=== PATIENT | male | born 1960 | race Caucasian/White ===

== ENCOUNTER 2016-04-03 16:04 | Emergency (ER) | payer BC, OTHER ==
[~2016-04-03] VITALS: Ht 182.9 cm; Wt 89.2 kg
[~2016-04-03 16:04] MED LIST: ADVIN50050 INH; ALBUAER2 INH; EZET10TA63 PO; FEXO5TAB2 PO; FLXHP; GABA-112 PO; GLUC10007 PO; MELATAB2 PO; MULT-506 PO; POTA1TAB PO; SNG10 PO
[2016-04-03 16:05] VITALS: BP 160/93; PULSE 83; TEMP 37; O2SAT 96; Ht 182.9 cm; Wt 89.2 kg
--- NOTE | 2016-04-03 16:39 | DIAGNOSTIC IMAGING REPORT ---
RIGHT ELBOW 3 VIEWS HISTORY: R elbow pain Right COMPARISON: None. FINDINGS: There is no fracture or dislocation. Soft tissues are unremarkable. No joint effusion. Small calcification adjacent to the medial epicondyle consistent with calcific tendinitis. IMPRESSION: No fracture or dislocation within the right elbow Electronically signed by: Choco Watson M.D. 04/03/2016 4:38 PM Dictated Date/Time: 04/03/2016 4:37 PM
--- NOTE | 2016-04-03 16:41 | DIAGNOSTIC IMAGING REPORT ---
RIGHT SHOULDER 3 VIEWS HISTORY: R shoulder injury Right COMPARISON: None. FINDINGS: There is no fracture or dislocation. Soft tissues are unremarkable. No radiopaque foreign bodies. The right clavicle is intact. There is mild AC joint arthropathy. IMPRESSION: No fracture or dislocation within the right shoulder. Electronically signed by: Choco Watson M.D. 04/03/2016 4:39 PM Dictated Date/Time: 04/03/2016 4:38 PM
[2016-04-03] MEDS ORDERED: SNG10 PO (16:48)
[2016-04-03] MEDS ORDERED: ALBUAER INH (16:48)
[2016-04-03] MEDS ORDERED: ZTA10 PO (16:48)
[2016-04-03] MEDS ORDERED: GABA1CAP4 PO (16:48)
[2016-04-03] MEDS ORDERED: TADA20TA PO (16:48)
[2016-04-03] MEDS ORDERED: CELE1CAP28 PO (16:48)
[2016-04-03] MEDS ORDERED: EPP3/2 IM (16:48)
[2016-04-03] MEDS ORDERED: ADVIN50/60 INH (16:48)
[2016-04-03] MEDS ORDERED: ALL180 PO (16:48)
[2016-04-03] MEDS ORDERED: GLUC1000 PO (16:50)
[2016-04-03] MEDS ORDERED: MELA1TAB49 PO (16:50)
--- NOTE | 2016-04-03 17:00 | EMERGENCY ROOM VISIT NOTE ---
History First contact with patient: 16:09 Chief Complaint: SHOULDER PAIN Stated Complaint: FELL OFF OF TRUCK,RT SHOULDER/ELBOW/BACK PAIN,WC History of Present Illness The patient is a 56 year old male who presents to the Emergency Room with complaints of injuries after falling out of a tractor trailer at 1 PM this afternoon. The patient reports that he was attempting to crawl out of the trailer with a rope that was attached to the inside of the box. As he was stepping off of the back step, the rope snapped, and the patient fell directly onto the right lateral shoulder region. He also reports hitting his elbow on the ground as well. He denies any head injury. He does report mild neck discomfort. He also has a history of chronic sciatica, but does not currently complain of any significant lower back pain. The patient denies any shortness of breath or rib pain. He rates his discomfort a 4 out of 10. The patient is [id number]. Review of Systems 10 system review was performed and was negative except for pertinent positives and negatives as indicated in history of present illness Past Medical/Surgical History Medical Problems: (1) Asthma (2) Hypercholesterolemia (3) Sciatica (4) Spinal stenosis Surgical Problems: (1) No history of previous surgery Social History Smoking Status: Never Smoker Alcohol Use: occasionally Marital Status: Housing Status: lives with family Occupation Status: employed Current/Historical Medications Scheduled Celecoxib (Celecoxib), 100 MG PO BID Ezetimibe (Zetia), 10 MG PO QAM Fexofenadine HCl (Fexofenadine HCl), 180 MG PO QAM Fluticasone Prop/Salmeterol (Advair Diskus 500/50 60 Dose), 1 PUFF INH BID Gabapentin (Gabapentin), 300 MG PO BID Glucosamine Sulfate (Glucosamine Sulfate), 2,000 MG PO QAM Melatonin (Melatonin), 3 MG PO HS Montelukast Sod (Montelukast Sodium), 10 MG PO HS Multivitamin (Multivitamin), 1 TAB PO QAM Potassium Gluconate (Potassium Gluconate), 1 TAB PO QAM Tadalafil (Cialis), 20 MG PO UD Scheduled PRN Albuterol Sulfate (Proventil Hfa), 2 PUFFS INH QID PRN for Shortness of Breath Epinephrine (Epipen 2-Vincent), 0.3 MG IM UD PRN for ALLERGIC REACTION Allergies Coded Allergies: NO KNOWN DRUG ALLERGIES (Verified Allergy, Unknown, ., 11/18/15) Uncoded Allergies: WASPS (Allergy, Unknown, ANAPHYLAXIS, 11/11/15) Physical Exam Vital Signs Date Time Temp Pulse Resp B/P Pulse Ox O2 Delivery O2 Flow Rate FiO2 04/03/16 16:05 37.0 83 18 160/93 96 Room Air Physical Exam CONSTITUTIONAL: Healthy and well nourished. Alert and oriented X 3 with positive affect. Patient is not appear in any acute distress. HEENT: Normocephalic, atraumatic. Pupils equal, round and reactive. NECK: Full active range of motion without discomfort. RESPIRATORY: Clear to auscultation bilaterally with no wheezing, crackles, rhonchi or stridor. CARDIOVASCULAR: Regular rate and rhythm with no murmurs, rubs or gallops. GASTROINTESTINAL: Bowel sounds present in all quadrants. Soft and nontender to palpation. MUSCULOSKELETAL: Examination shows a small abrasion to the lateral aspect of the right elbow. Otherwise he has full range of motion of the elbow without discomfort. No obvious joint effusion. The patient is also performing full active range of motion of the shoulder without any significant discomfort. Negative drop arm test. Negative apprehension test. No focal tenderness over the distal clavicle or acromioclavicular joint. Distal pulses are intact. INTEGUMENTARY: No rash or other significant dermatologic conditions noted. NEUROLOGIC: Right deltoid sensation is intact. Medical Decision & Procedures ER Provider Diagnostic Interpretation: My interpretation of right shoulder and elbow x-rays does not show any acute fractures or dislocations. Radiologist reports were also reviewed with concurrence. ED Course Patient history and physical exam were performed. Nurse's notes were reviewed. The patient refused any analgesics while in the emergency department. Right shoulder and elbow x-rays were normal. The patient was encouraged to intermittently apply ice to areas of discomfort. Continue with Celebrex twice daily as previously prescribed by his PCP. He may also add Tylenol 1000 mg every 6 hours for additional pain relief. He was encouraged to avoid heavy labor with the right upper extremity, however should perform gentle range of motion exercises of the shoulder to prevent stiffness. He was encouraged to follow-up with his Worker's Compensation approved orthopedic surgeon if the shoulder is not improving or worsening within the next week. The patient was happy with plan of care, voiced understanding of all discharge instructions, and rated his pain a 3 out of 10 at the time of discharge. Medical Decision Impression Primary Impression: Contusion of right elbow Additional Impressions: Fall from stationary vehicle Work related injury Contusion of right shoulder Departure Information Dispostion Home / Self-Care Forms HOME CARE DOCUMENTATION FORM, IMPORTANT VISIT INFORMATION Patient Instructions My [facility] [employer] Additional Instructions Intermittently apply ice to the shoulder. Perform range of motion exercises of the shoulder and elbow to prevent stiffness. Continue with your home Celebrex twice daily. Tylenol 1000 mg every 6 hours if needed for additional pain relief. Follow-up with your Worker's Compensation approved orthopedic surgeon as needed for any persistent or worsening shoulder pain. Problem Qualifiers Primary Impression: Contusion of right elbow Encounter type: initial encounter Qualified Codes: S50.01XA - Contusion of right elbow, initial encounter Additional Impressions: Fall from stationary vehicle Encounter type: initial encounter Qualified Codes: W17.89XA - Other fall from one level to another, initial encounter Contusion of right shoulder Encounter type: initial encounter Qualified Codes: S40.011A - Contusion of right shoulder, initial encounter
[2016-10-31] MEDS ORDERED: CEPH500C PO (08:32)
[2016-10-31] MEDS ORDERED: OXYC-57 PO (08:32)
== END 2016-04-03 17:02 | disposition home or self-care (01) ==
LOC: C.EDB 16:05 → C.EDD 17:02
DX: S50.01XA Contusion of right elbow, initial encounter (principal); S40.011A Contusion of right shoulder, initial encounter; W17.89XA Other fall from one level to another, initial encounter; Y92.89 Other specified places as the place of occurrence of the external cause; Y99.0 Civilian activity done for income or pay; E78.00 Pure hypercholesterolemia, unspecified; J45.909 Unspecified asthma, uncomplicated; Z79.899 Other long term (current) drug therapy; Z91.030 Bee allergy status

== ENCOUNTER → 2016-08-01 | Day surgery (SDC) | payer OTHER, BC ==
[2016-07-24 07:53] VITALS: Ht 182.9 cm; Wt 81.8 kg
[~2016-08-01] VITALS: Ht 182.9 cm; Wt 81.8 kg
[~2016-08-01] MED LIST changes: +ADVIN50/60 INH; -ADVIN50050 INH; +ALBUAER INH; -ALBUAER2 INH; +ALL180 PO; +CELE1CAP28 PO; +CEPH500C PO; +EPP3/2 IM; -EZET10TA63 PO; -FEXO5TAB2 PO; -FLXHP; -GABA-112 PO; +GABA1CAP4 PO; +GLUC1000 PO; -GLUC10007 PO; +IOPAMIDOL INJ 61% 15 ML VIAL ONE; +LIDOCAINE HCL 1% MPF 5 ML VIAL ONE; +MELA1TAB49 PO; -MELATAB2 PO; +OXYC-57 PO; +SODIUM CHLORIDE 0.9% INJ 10 ML VIAL ONE; +TADA20TA PO; +ZTA10 PO
--- NOTE | 2016-08-01 13:22 | History & Physical Bridge - [place] ---
H&P Re-Evaluation Bridge Note: I have examined the patient, reviewed the History & Physical and in the interval since the performance of the History & Physical I have noted the following changes of clinical significance: No changes noted
--- NOTE | 2016-08-01 13:55 | Discharge Instructions ---
Discharge Instructions Date of Service August 01, 2016. Visit Reason for Visit: Lumbar Radiculopathy Discharge Discharge Diagnosis / Problem: right leg pain Discharge Goals Goal(s): Decrease discomfort, Improve function Activity Recommendations Activity Limitations: resume your previous activity Anesthesia . Post Anesthesia Instructions: If you have had General Anesthesia or IV Sedation: * Do not drive today. * Resume driving when surgeon permits. * Do not make important decisions or sign legal documents today. * Call surgeon for: 1. Temperature elevations greater than 101 degrees F. 2. Uncontrollable pain. 3. Excessive bleeding. 4. Persistent nausea and vomiting. 5. Medication intolerance (nausea, vomiting or rash). * For nausea and vomiting use only clear liquids such as: tea, soda, bouillon until nausea subsides, then gradually increase diet as tolerated. * If you have any concerns or questions, call your surgeon's office. If physician is unavailable and it is an emergency, call 911 or go to the nearest emergency room. . Diet Recommendations Recommended Home Diet: resume previous diet Procedures Procedures Performed: Lumbar epidural steroid injection Pending Studies Studies pending at discharge: no Medical Emergencies . Who to Call and When: Medical Emergencies: If at any time you feel your situation is an emergency, please call 911 immediately. . Non-Emergent Contact Non-Emergency issues call your: Specialist . . "Provider Documentation" section prepared by Alexandru Leos. .
[2016-08-01 13:57] VITALS: BP 157/88; PULSE 79; TEMP 36.8; O2SAT 94
--- NOTE | 2016-08-01 14:06 | OPERATIVE REPORT ---
DATE OF OPERATION: 08/01/2016 PREOPERATIVE DIAGNOSIS: L4-L5 extrusion with a right L5 radiculopathy. POSTOPERATIVE DIAGNOSIS: Same. PROCEDURE: Right paramedian L5-S1 intralaminar epidural steroid injection under fluoroscopic guidance. INDICATIONS: The patient is a 56-year-old white male who received an epidural injection in March with good results of right lower extremity radiculopathy pain. He reports recently the pain has been returning and is functionally limiting and problematic to him. He presents today for an epidural injection to provide him with relief. PHYSICAL EXAMINATION: Pleasant male seated comfortably, in no apparent distress. He has paraspinal muscles that were palpated and noted to be nontender. He has negative seated straight leg raises and intact sensation distally. CONSENT: Verbal and written consent was obtained from the patient. Risks and benefits were reviewed. Risks include but are not limited to epidural abscess, epidural hematoma, allergic reaction, dural puncture. The patient wishes to proceed. PROCEDURE: The patient was taken back to the special procedures room of the [facility] where he was maintained in a prone position. Backside was cleansed with Betadine x3 and a dry sterile dressing was applied. Fluoroscope was used to identify the L5-S1 intralaminar space and overlying skin on the right side was anesthetized with 4 mL of lidocaine 1% with a 25 gauge 1.5-inch needle. A 22-gauge 3-1/2 inch Tuohy needle was then directed down towards the intralaminar space. It was advanced under lateral fluoroscopic guidance and loss of resistance was noted at a depth of 6 cm. He then underwent injection of Isovue 300 contrast which demonstrated epidural uptake pattern 1 mL in both the AP and lateral views. He then underwent injection after negative aspiration of 40 mg of Depo-Medrol and 4 mL of preservative free sodium chloride. Injection was well tolerated and reproduced a transient radicular sensation down the leg. DISPOSITION: 1. The patient is taken out into the discharge recovery area where he will be discharged home once discharge criteria have been met. 2. Follow up in the [facility] Medicine office in 2-4 weeks. I attest to the content of the Intraoperative Record and any orders documented therein. Any exceptio ns are noted below.
== END | disposition home or self-care (01) ==
LOC: X.SURG 12:31
PROVIDERS: ATTEND Physical Medicine & Rehabilitation
DX: M51.26 Other intervertebral disc displacement, lumbar region (principal)

== ENCOUNTER → 2016-10-02 | Outpatient (CLI) | payer OTHER, BC ==
[~2016-10-02] MED LIST changes: -IOPAMIDOL INJ 61% 15 ML VIAL ONE; -LIDOCAINE HCL 1% MPF 5 ML VIAL ONE; -SODIUM CHLORIDE 0.9% INJ 10 ML VIAL ONE
[2016-10-02 17:32] LABS: BASO % 0.7 %; BASO ABS # 0.06 K/uL (0-0.2); COMPLETE YES; EOS % 1.7 %; HEMATOCRIT 48.7 % (42-52); IG% 0.5 %; LYMPH ABS # 1.61 K/uL (1.2-3.4); MEAN CELL VOLUME 96.6 fL (80-100); MEAN CORPUSCULAR HEMOGLOBIN 32.5 pg (25-34); MEAN CORPUSCULAR HGB CONC 33.7 g/dl (32-36); MONO % 11.4 %; NEUT % 65.7 %; PLATELET COUNT 274 K/uL (130-400); RED BLOOD COUNT 5.04 M/uL (4.7-6.1); WHITE BLOOD COUNT 8.04 K/uL (4.8-10.8)
[2016-10-02 17:58] LABS: BLOOD UREA NITROGEN 24 mg/dl (7-18); BUN/CREATININE RATIO 19.7 (10-20); CALCIUM 9.6 mg/dl (8.5-10.1); CARBON DIOXIDE 27 mmol/L (21-32); CHLORIDE 107 mmol/L (98-107); GLUCOSE 110 mg/dl (70-99); POTASSIUM 4.1 mmol/L (3.5-5.1); SODIUM 139 mmol/L (136-145)
== END | disposition home or self-care (01) ==
LOC: C.LAB1850 16:56
PROVIDERS: ATTEND Physician Assistant
DX: M12.811 Other specific arthropathies, not elsewhere classified, right shoulder (principal)

== ENCOUNTER → 2016-10-02 | Outpatient (CLI) | payer OTHER, BC | END | disposition home or self-care (01) | LOC: C.CPL 17:27 | PROVIDERS: ATTEND Physician Assistant | DX: M12.811 Other specific arthropathies, not elsewhere classified, right shoulder (principal) ==

== ENCOUNTER → 2016-10-31 | Day surgery (SDC) | payer OTHER, BC ==
[~2016-10-31] MED LIST changes: +ATROPINE SULFATE 0.1 MG/ML 5ML SYR IV PRN; +CEFAZOLIN 2000 MG/60 ML D5W IV SCH; +DEXAMETHASONE SOD INJ 4 MG/ML VIAL ONE; +EpHEDrine SULFATE INJ 50 MG/ML AMP IV PRN; +FENTANYL CITRATE INJ 50 MCG/1 ML 2 ML VIAL IV PRN; +FENTANYL CITRATE INJ 50 MCG/1 ML 2 ML VIAL ONE; +LACTATED RINGER'S 1000ML 1,000 ML IV SCH; +LIDOCAINE HCL 2% 2 ML VIAL (20MG/ML) ONE; +MIDAZOLAM HCL 1 MG/ML 2ML VIAL ONE; +ONDANSETRON INJ 2 MG/ML 2 ML VIAL IV PRN; +ONDANSETRON INJ 2 MG/ML 2 ML VIAL ONE; +OXYCODONE/ACETAMINOPHEN 5-325 TAB PO PRN; +PROPOFOL IV EMULSION 10 MG/ML 20 ML VIAL IV ONE; +ROPIVACAINE 0.5% 5 MG/ML 30 ML VIAL ONE; +SODIUM CHLORIDE 0.9% 1000ML 1,000 ML IV SCH
--- NOTE | 2016-10-31 08:47 | History & Physical Bridge Note ---
H&P Re-Evaluation Bridge Note: I have examined the patient, reviewed the History & Physical and in the interval since the performance of the History & Physical I have noted the following changes of clinical significance:consent obtained .No changes noted
--- NOTE | 2016-10-31 08:48 | Discharge Instructions ---
Discharge Instructions Date of Service Oct 31, 2016. Visit Reason for Visit: Right Shoulder Rotator Cuff Tear Discharge Discharge Diagnosis / Problem: same Discharge Goals Goal(s): Decrease discomfort, Improve function Medications Stopped Medications Name(s): CELEBREX last dose 10/26/16 Restart Stopped Medication(s): resume all scripts as directed Activity Recommendations Activity Limitations: as noted below Lifting Limitations: until after follow-up appointment Exercise/Sports Limitations: until after follow-up appointment May Resume Sexual Activity: when tolerated Shower/Bathe: keep incision dry Driving or Machine Use: resume 3 days after discharge Anesthesia . Post Anesthesia Instructions: If you have had General Anesthesia or IV Sedation: * Do not drive today. * Resume driving when surgeon permits. * Do not make important decisions or sign legal documents today. * Call surgeon for: 1. Temperature elevations greater than 101 degrees F. 2. Uncontrollable pain. 3. Excessive bleeding. 4. Persistent nausea and vomiting. 5. Medication intolerance (nausea, vomiting or rash). * For nausea and vomiting use only clear liquids such as: tea, soda, bouillon until nausea subsides, then gradually increase diet as tolerated. * If you have any concerns or questions, call your surgeon's office. If physician is unavailable and it is an emergency, call 911 or go to the nearest emergency room. . Instructions / Follow-Up Instructions / Follow-Up The following are instructions to follow after "Shoulder Surgery" including, Acromioplasty, Rotator Cuff Repair and Instability Surgery ACTIVITY RECOMMENDATIONS: * Minimize activity after surgery. * No excessive walking, jogging, sports or laboring. * Return to activity is individualized depending on the patient and type of surgery. * Driving is not permitted until at least your first post operative visit. Please ask your doctor when it is safe to resume driving. * Expect increased discomfort with increased activity. Continue to ice the shoulder as needed. SCHOOL/WORK RECOMMENDATIONS: * You may return to sedentary work or school when you are feeling more comfortable. This is usually 3-7 days after surgery. MEDICATIONS: * You will have a prescription for pain medication and an anti-inflammatory medication after surgery. * Use the pain medication for severe pain and the anti-inflammatory for less severe pain. Once the pain medication has run out, try to use the anti-inflammatory medication. If this is not effective, contact the office for assistance. * The pain medication may cause nausea, constipation and drowsiness. You should see how they affect you before driving or similar activity. * The anti-inflammatory medication may cause stomach upset and bleeding. If this occurs let your doctor know immediately . * Take a stool softener like Colace or a laxative like Senokot to prevent constipation. DIET: * Resume previous diet. SPECIAL CARE: ICE: You have the option of an ice cooler, gel packs or ice bags. * If you have an ice cooler, refer to the instructions for that device. The ice cooler may be used continuously. * If you do not have an ice cooler, you will need to use ice bags or gel packs. Do not apply ice directly to the skin. Use a thin dressing or hussain shirt between the skin and ice bag. Apply ice for 20-30 minutes and repeat every 2-4 hours. This is especially important for the first 7-10 days after surgery. Once the pain improves, use ice as needed. ELEVATION: * You may be more comfortable sleeping in an upright position. Use the sling to elevate your arm. DRESSING: * Your dressing will be changed at your first therapy appointment approximately 4-5 days after surgery. Band-aids, tape strips or gauze may be applied. You may then change your dressing daily. * Reapply dressing followed by the EBIce cooling pad (if chosen) and then the sling. * Always wash your hands prior to touching the incision area. * Once the stitches are removed, you may leave the wound open to air or cover with gauze. * Expect some bloody drainage for the first few days after surgery. * Leave the tape strips, if present, in place for 5-7 days. * Band-aids and gauze may be changed daily. * There may be a gauze pad in your armpit area. This can be changed daily or replaced by a dry washcloth. SLING/BRACE: * You will need to use a sling or brace after surgery. The length of time the sling is used is dependent upon the type of surgery performed. * Arthroscopic Acromioplasty requires use of the sling for 2-4 weeks for comfort. * Labral procedures and Rotator Cuff Repairs require use of the sling for a longer period of time. Please check with your doctor prior to discontinuing the sling. BATHING: * You may shower or sponge-bathe immediately after surgery. The post operative shoulder dressing is mostly water-tight. You may shower right over this dressing, but be reasonably careful not to get the gauze or incision wet. * Once the dressing has been changed on the fourth or fifth day after surgery, you may shower and get the incision wet. * Wash with regular soap and water. * Do not bathe (submerge the incision), soak, swim or use a hot tub until the incision is completely healed over with normal skin and the doctor has given the OK to proceed. * There is no need to apply any ointments, powders or salves to your incision. * Do not apply alcohol or hydrogen peroxide directly to the incision. * Diluted peroxide (50:50 mixture with sterile saline) may be used to clean dried blood from around the incision area. THERAPY: * You will begin therapy four or five days after surgery. * Organized therapy with the therapist is important for the first 2-4 months after surgery depending on the type of procedure. During that time you will attend therapy 1-3 times per week. * You will also need to do daily exercises for range of motion and strength as instructed. * Patients who have a Capsular Shift Procedure will need to abide by temporary range of motion limitations. * Patients having Rotator Cuff Surgery are not allowed to actively lift their arms until 4-6 weeks after surgery. * Please check with your doctor regarding appropriate motion restrictions. FOLLOW UP VISIT: * If not already scheduled, please call the office at to schedule a follow-up appointment for 10 days after surgery and monthly thereafter. Diet Recommendations Recommended Home Diet: resume previous diet Procedures Procedures Performed: see op note Pending Studies Studies pending at discharge: no Medical Emergencies . Who to Call and When: Medical Emergencies: If at any time you feel your situation is an emergency, please call 911 immediately. . Non-Emergent Contact Non-Emergency issues call your: Specialist Call Non-Emergent contact if: temperature is above 101.5 . . "Provider Documentation" section prepared by Dayton Leone. .
[2016-10-31] MEDS: EpINEphrine INJ 1MG/ML AMP 1 MG/ML AMP ONE (09:32)
--- NOTE | 2016-10-31 10:22 | [facility] Post Operative Brief Note ---
Immediate Operative Summary Operative Date Oct 31, 2016. Pre-Operative Diagnosis Right Shoulder Rotator Cuff Tear Post-Operative Diagnosis Same/2.5cm cuff tear/biceps tendonopathy Procedure(s) Performed Right Shoulder Arthroscopy, Rotator Cuff Repair, Subacromial Decompression, Debridement, partial biceps. Surgeon Dr. Leone Clip On Sunglasses Assembler Surgeon(s) Melly Garza PA-C Estimated Blood Loss Trace Findings see op note Fluids (cc crystalloids) 1200cc Specimens None Drains none Anesthesia LMA/block Complication(s) None Disposition Recovery Room / PACU
--- NOTE | 2016-10-31 10:46 | Anesthesia Progress Nt - [facility] ---
Anesthesia Post Op Note Date & Time Oct 31, 2016 at 10:45 Vital Signs Pain Intensity: 0 Vital Signs Past 12 Hours Date Time Temp Pulse Resp B/P (MAP) Pulse Ox O2 Delivery O2 Flow Rate FiO2 10/31/16 10:38 70 16 10/31/16 10:38 70 16 99 10/31/16 10:36 149/92 10/31/16 10:33 79 21 10/31/16 10:33 79 21 100 10/31/16 10:32 137/91 10/31/16 10:31 36.7 72 16 137/91 99 Mask 6 10/31/16 09:13 11 10/31/16 09:11 147/83 10/31/16 09:08 72 15 98 10/31/16 09:08 72 10/31/16 09:06 147/86 10/31/16 09:03 80 21 99 10/31/16 09:03 76 10/31/16 09:02 75 15 98 10/31/16 09:02 76 10/31/16 09:01 142/91 10/31/16 08:57 84 13 98 10/31/16 08:57 69 10/31/16 08:56 148/85 10/31/16 08:52 92 27 98 10/31/16 08:52 84 10/31/16 08:51 153/92 10/31/16 08:50 84 13 98 10/31/16 08:50 74 10/31/16 08:46 144/85 10/31/16 08:45 77 10/31/16 08:45 81 25 98 10/31/16 08:41 146/90 10/31/16 08:40 64 6 100 10/31/16 08:40 66 10/31/16 08:36 158/86 10/31/16 08:35 85 21 100 10/31/16 08:35 88 10/31/16 08:32 172/91 10/31/16 08:30 83 10/31/16 08:30 83 19 99 10/31/16 08:25 76 0 10/31/16 08:20 78 0 10/31/16 08:15 83 0 99 10/31/16 08:15 84 10/31/16 08:10 71 10/31/16 08:10 73 0 98 10/31/16 08:05 74 0 99 10/31/16 08:05 67 10/31/16 07:25 36.9 73 16 164/84 (110) 98 Room Air Notes Mental Status: alert / awake / arousable, participated in evaluation Pt Amnestic to Procedure: Yes Nausea / Vomiting: adequately controlled Pain: adequately controlled Airway Patency, RR, SpO2: stable & adequate BP & HR: stable & adequate Hydration State: stable & adequate Anesthetic Complications: no major complications apparent
--- NOTE | 2016-10-31 10:56 | [facility] Operative Report ---
Operative Report Operative Date Oct 31, 2016. Pre-Operative Diagnosis Right Shoulder Rotator Cuff Tear Post-Operative Diagnosis Right shoulder Same/2.5cm cuff tear/biceps tendonopathy Procedure(s) Performed Right Shoulder Arthroscopy, Rotator Cuff Repair, Subacromial Decompression, Debridement of partial tear of the biceps tendon. Surgeon Dr. Leone Wood Type Cutter Surgeon(s) Melly Garza PA-C Estimated Blood Loss Trace Findings Partial tear of the proximal biceps tendon, shoulder impingement, large rotator cuff tear Fluids (cc crystalloids) 1200cc Specimens None Drains none Complication(s) None Disposition Recovery Room / PACU Indications This 56-year-old white male presented to the office with complaints of right shoulder pain that has been ongoing since late last year. Patient injured himself when he fell off of his tractor-trailer. He had tried conservative care measures without improvement. Preoperative imaging was obtained. He elected to proceed with surgical intervention after being educated about potential risks and outcomes. Description of Procedure Patient was administered a regional block and then taken to the operating room or he was given general anesthesia. He was prepped and draped in usual sterile fashion. Please see Dr. Leone's operative report for specifics of the procedure. I was present for the entire case from initial patient positioning through final wound closure. Assistance was provided in patient positioning, arthroscopy, hardware placement, and final wound closure. Patient was taken to the recovery room in satisfactory condition. I attest to the content of the Intraoperative Record and any orders documented therein. Any exceptions are noted below.
--- NOTE | 2016-10-31 10:56 | OPERATIVE REPORT ---
DATE OF OPERATION: 10/31/2016 PREOPERATIVE DIAGNOSIS: Right shoulder impingement syndrome with rotator cuff tear. POSTOPERATIVE DIAGNOSIS: Same with biceps tenosynovitis and partial tear. OPERATION PERFORMED: 1. Exam under anesthesia. 2. Diagnostic arthroscopy. 3. Arthroscopic debridement of biceps tenosynovitis, subacromial decompression, and a 2.5 cm rotator cuff repair full thickness with retraction of about a 1.5 cm. SURGEON: Dr. Leone. MECHANICAL TECHNOLOGIST: Fabian Garza PA-C. No resident or fellow available. PERIOPERATIVE SITUATION: Medically cleared male with intractable shoulder pain. At this point in time, has failed conservative management and wants to proceed with surgical treatment. PROCEDURE: The patient appropriately identified, site verified, consent verified, 2 grams of Ancef confirmed as being given. The right upper extremity was examined revealing no instability. He was then sterilely prepped and draped in usual routine fashion with the patient in the beach chair position, everything was carefully padded. The procedure was then initiated with a posterior portal made 2 cm medial and inferior to posterolateral tip of the posterolateral acromion. The joint was entered without difficulty. Inspection of the joint revealed the tenosynovitis, fraying of the biceps, this was all debrided and then contoured with thermal device. It was elected to leave it alone since he is healthy and active. Immediately encountered was large rotator cuff tear and it was suspected that a lot of the synovitis was from the cuff tear being so close to the biceps. Once the joint was debrided, subacromial space entered, bursectomy completed, the rotator cuff debrided there was about 2.5 cm footprint from the supraspinatus attachment anteriorly to posterior. This was all debrided to bone. An accessory anterolateral portal was then made and the Ade cannula utilized. Four sutures were then placed, 2 anchors placed into the far lateral on the wall of the greater tuberosity which pulled the rotator cuff back into anatomic position into the bed that was debrided to bleeding bone. An excellent repair was obtained. This was then inspected from the lateral side and the subacromial decompression performed to take any impingement off the cuff. It was elected not to do anything with the AC joint space based on lack of symptoms there. The procedure was then terminated. All instruments and fluid removed. The portals closed with 3-0 nylon, dressed with Xeroform, 4 x 4 gauze, ABD pads and Ioban dressing. The arm was then placed in a sling. Estimated blood loss was trace. Crystalloid 1200 mL. Overall prognosis is good. I attest to the content of the Intraoperative Record and any orders documented therein. Any exceptions are noted below. MTDD
== END | disposition home or self-care (01) ==
LOC: X.SURG 07:16
PROVIDERS: ATTEND Physical Medicine & Rehabilitation Sports Medicine
DX: S46.011A Strain of muscle(s) and tendon(s) of the rotator cuff of right shoulder, initial encounter (principal); M75.41 Impingement syndrome of right shoulder; M65.811 Other synovitis and tenosynovitis, right shoulder; W00.2XXA Other fall from one level to another due to ice and snow, initial encounter; E78.00 Pure hypercholesterolemia, unspecified; M19.90 Unspecified osteoarthritis, unspecified site; J45.909 Unspecified asthma, uncomplicated; K21.9 Gastro-esophageal reflux disease without esophagitis; Z83.3 Family history of diabetes mellitus; Z82.49 Family history of ischemic heart disease and other diseases of the circulatory system; Z82.3 Family history of stroke; Z80.0 Family history of malignant neoplasm of digestive organs; Z82.5 Family history of asthma and other chronic lower respiratory diseases; M06.9 Rheumatoid arthritis, unspecified

== ENCOUNTER → 2016-12-18 | Outpatient (CLI) | payer OTHER, BC ==
[~2016-12-18] MED LIST changes: -ATROPINE SULFATE 0.1 MG/ML 5ML SYR IV PRN; -CEFAZOLIN 2000 MG/60 ML D5W IV SCH; -DEXAMETHASONE SOD INJ 4 MG/ML VIAL ONE; -EpHEDrine SULFATE INJ 50 MG/ML AMP IV PRN; -FENTANYL CITRATE INJ 50 MCG/1 ML 2 ML VIAL IV PRN; -FENTANYL CITRATE INJ 50 MCG/1 ML 2 ML VIAL ONE; -LACTATED RINGER'S 1000ML 1,000 ML IV SCH; -LIDOCAINE HCL 2% 2 ML VIAL (20MG/ML) ONE; -MIDAZOLAM HCL 1 MG/ML 2ML VIAL ONE; -ONDANSETRON INJ 2 MG/ML 2 ML VIAL IV PRN; -ONDANSETRON INJ 2 MG/ML 2 ML VIAL ONE; -OXYCODONE/ACETAMINOPHEN 5-325 TAB PO PRN; -PROPOFOL IV EMULSION 10 MG/ML 20 ML VIAL IV ONE; -ROPIVACAINE 0.5% 5 MG/ML 30 ML VIAL ONE; -SODIUM CHLORIDE 0.9% 1000ML 1,000 ML IV SCH
== END | disposition home or self-care (01) ==
LOC: C.RDSM 12:00
PROVIDERS: ATTEND Physical Medicine & Rehabilitation Sports Medicine
DX: M12.811 Other specific arthropathies, not elsewhere classified, right shoulder (principal)

== ENCOUNTER → 2016-12-25 | Outpatient (CLI) | payer BC ==
[~2016-12-25] MED LIST changes: -CEPH500C PO
[2016-12-25 09:55] LABS: ALT/SGPT 41 U/L (12-78); AST/SGOT 19 U/L (15-37); BLOOD UREA NITROGEN 19 mg/dl (7-18); CALCIUM 8.9 mg/dl (8.5-10.1); CARBON DIOXIDE 24 mmol/L (21-32); CHLORIDE 107 mmol/L (98-107); CREATININE 1.02 mg/dl (0.60-1.40); GLUCOSE 112 mg/dl (70-99); POTASSIUM 4.1 mmol/L (3.5-5.1); SODIUM 140 mmol/L (136-145)
[2016-12-25 10:01] LABS: ALKALINE PHOSPHATASE 62 U/L (45-117); CHOLESTEROL 221 mg/dl (0-200); CHOLESTEROL/HDL RATIO 4.5; HDL CHOLESTEROL 49 mg/dl; LDL CHOLESTEROL CALCULATED 125 mg/dl; PROSTATE SPECIFIC ANTIGEN 0.555 ng/ml (0.000-4.000); TRIGLYCERIDES 233 mg/dl (0-150); VERY LOW DENSITY LIPOPROT CALC 47 mg/dl
== END | disposition home or self-care (01) ==
LOC: C.LAB 07:06
PROVIDERS: ATTEND Nurse Practitioner
DX: E78.00 Pure hypercholesterolemia, unspecified (principal); Z12.5 Encounter for screening for malignant neoplasm of prostate

== ENCOUNTER → 2017-01-11 | Day surgery (SDC) | payer OTHER, BC ==
[2016-12-19 14:51] VITALS: Ht 193 cm; Wt 85.9 kg
[~2017-01-11] VITALS: Ht 193 cm; Wt 85.9 kg
[~2017-01-11] MED LIST changes: +IOPAMIDOL INJ 61% 15 ML VIAL ONE; +LIDOCAINE HCL 1% MPF 5 ML VIAL ONE; +SODIUM CHLORIDE 0.9% INJ 10 ML VIAL ONE
--- NOTE | 2017-01-11 15:08 | Discharge Instructions ---
Discharge Instructions Date of Service Jan 11, 2017. Visit Reason for Visit: Lumbar Radiculopathy Discharge Discharge Diagnosis / Problem: low back pain with leg pain Discharge Goals Goal(s): Decrease discomfort, Improve function Activity Recommendations Activity Limitations: resume your previous activity Anesthesia . Post Anesthesia Instructions: If you have had General Anesthesia or IV Sedation: * Do not drive today. * Resume driving when surgeon permits. * Do not make important decisions or sign legal documents today. * Call surgeon for: 1. Temperature elevations greater than 101 degrees F. 2. Uncontrollable pain. 3. Excessive bleeding. 4. Persistent nausea and vomiting. 5. Medication intolerance (nausea, vomiting or rash). * For nausea and vomiting use only clear liquids such as: tea, soda, bouillon until nausea subsides, then gradually increase diet as tolerated. * If you have any concerns or questions, call your surgeon's office. If physician is unavailable and it is an emergency, call 911 or go to the nearest emergency room. . Diet Recommendations Recommended Home Diet: resume previous diet Procedures Procedures Performed: LUMBAR EPIDURAL STEROID INJECTION Pending Studies Studies pending at discharge: no Medical Emergencies . Who to Call and When: Medical Emergencies: If at any time you feel your situation is an emergency, please call 911 immediately. . Non-Emergent Contact Non-Emergency issues call your: Specialist . . "Provider Documentation" section prepared by Alexandru Leos. .
[2017-01-11 15:16] VITALS: BP 138/92; PULSE 87; O2SAT 97
--- NOTE | 2017-01-11 15:21 | OPERATIVE REPORT ---
DATE OF OPERATION: 01/11/2017 PREOPERATIVE DIAGNOSIS: Lumbar spinal stenosis with right lower extremity radiculopathy. POSTOPERATIVE DIAGNOSIS: Same. PROCEDURE: Right paramedian L5-S1 intralaminar epidural steroid injection under fluoroscopic guidance. INDICATIONS: The patient is a 56-year-old white male who has received epidural injections in the past with good results. Last one was done a number of months to a year ago and he had nice results of radicular pain. Just recently, the pain has been returning and is functionally limiting to him. He presents today for an epidural injection to provide him with relief of radicular pain. PHYSICAL EXAMINATION: Pleasant male seated comfortably. He has some moderate tenderness to palpation over his lumbar spine as well as the left sciatic notch area. He has some mild pain with forward flexion. He has normal motor and sensory exam with negative seated straight leg raises. CONSENT: Verbal and written consent was obtained from the patient. Risks and benefits were reviewed. Risks include, but are not limited to epidural abscess, epidural hematoma, allergic reaction, and dural puncture. The patient wishes to proceed. DESCRIPTION OF PROCEDURE: The patient was taken back into the special procedures room of the [facility], where he was maintained in a prone position. Backside was cleansed with Betadine x3 and a dry sterile dressing was applied. Fluoroscope was used to identify the L5-S1 intralaminar space. Overlying skin was anesthetized on the right side with lidocaine 1% with 4 mL, a 25-gauge 1-1/2 inch needle. A 22-gauge 3-1/2 inch Tuohy needle was then directed down towards the intralaminar space. It was advanced under lateral fluoroscopic guidance and loss of resistance was noted at a depth of 7 cm. Isovue-300 contrast 1 mL was injected in which demonstrated an epidural uptake pattern. He then underwent injection after negative aspiration of 40 mg of Depo-Medrol and 4 mL of preservative free sodium chloride. Injection was well tolerated. DISPOSITION: The patient was taken out into the discharge recovery area, where he will be discharged home once discharge criteria have been met and he will follow up in the [facility] office in 4 weeks. I attest to the content of the Intraoperative Record and any orders documented therein. Any exception s are noted below.
== END | disposition home or self-care (01) ==
LOC: X.SURG 13:34
PROVIDERS: ATTEND Physical Medicine & Rehabilitation
DX: M48.061 Spinal stenosis, lumbar region without neurogenic claudication (principal); M54.16 Radiculopathy, lumbar region; J45.909 Unspecified asthma, uncomplicated; K21.9 Gastro-esophageal reflux disease without esophagitis; Z90.89 Acquired absence of other organs; Z79.899 Other long term (current) drug therapy; Z98.890 Other specified postprocedural states; Z83.3 Family history of diabetes mellitus; Z82.49 Family history of ischemic heart disease and other diseases of the circulatory system

== ENCOUNTER → 2017-06-02 | Outpatient (CLI) | payer OTHER, BC ==
[~2017-06-02] MED LIST changes: +GABA-1219 PO; -GABA1CAP4 PO; -IOPAMIDOL INJ 61% 15 ML VIAL ONE; -LIDOCAINE HCL 1% MPF 5 ML VIAL ONE; -SODIUM CHLORIDE 0.9% INJ 10 ML VIAL ONE
[2017-06-02 07:27] LABS: HEMATOCRIT 43.6 % (42-52); HEMOGLOBIN 15.7 g/dL (14.0-18.0); MEAN CELL VOLUME 95.4 fL (80-100); MEAN CORPUSCULAR HEMOGLOBIN 34.4 pg (25-34); MEAN PLATELET VOLUME 10.2 fL (7.4-10.4); PLATELET COUNT 200 K/uL (130-400); RED CELL DISTRIBUTION WIDTH CV 12.9 % (11.5-14.5); RED CELL DISTRIBUTION WIDTH SD 44.3 fL (36.4-46.3); WHITE BLOOD COUNT 5.62 K/uL (4.8-10.8)
[2017-06-02 07:44] LABS: HEMOGLOBIN A1C 5.7 % (4.5-5.6)
[2017-06-02 08:00] LABS: ALBUMIN 3.7 gm/dl (3.4-5.0); ALT/SGPT 48 U/L (12-78); BLOOD UREA NITROGEN 22 mg/dl (7-18); CALCIUM 8.6 mg/dl (8.5-10.1); CARBON DIOXIDE 26 mmol/L (21-32); CHOLESTEROL 205 mg/dl (0-200); CREATININE 1.11 mg/dl (0.60-1.40); GLUCOSE 124 mg/dl (70-99); POTASSIUM 4.1 mmol/L (3.5-5.1); SODIUM 139 mmol/L (136-145)
[2017-06-02 08:03] LABS: ALKALINE PHOSPHATASE 57 U/L (45-117); AST/SGOT 26 U/L (15-37); LDL CHOLESTEROL CALCULATED 120 mg/dl
== END | disposition home or self-care (01) ==
LOC: C.LAB 06:59
PROVIDERS: ATTEND Internal Medicine
DX: E78.00 Pure hypercholesterolemia, unspecified (principal); R73.01 Impaired fasting glucose

== ENCOUNTER → 2017-10-16 | Outpatient (CLI) | payer OTHER | END | disposition home or self-care (01) | LOC: C.LAB1850 16:15 | PROVIDERS: ATTEND Nurse Practitioner | DX: L50.9 Urticaria, unspecified (principal) ==

== ENCOUNTER 2021-09-28 14:48 | Inpatient (IN) ==
[2021-09-28] MEDS ORDERED: SODIUM CHLORIDE 0.9% 1000ML 500 ML IV ONE (15:12)
[2021-09-28] MEDS ORDERED: MoRPHine SULFATE 10 MG/ML CARP/VIAL IV STA (15:12)
[2021-09-28] MEDS ORDERED: KETOROLAC TROMETHAMINE 15 MG/ML VIAL IV STA (15:12)
[2021-09-28] MEDS ORDERED: ONDANSETRON INJ 2 MG/ML 2 ML VIAL IV STA (15:12)
[2021-09-28] MEDS ORDERED: LORazepam 2 MG/1 ML VIAL IV STA (15:17)
[2021-09-28] MEDS ORDERED: dexAMETHasone**PF** 10 MG/ML VIAL IV ONE (15:17)
--- NOTE | 2021-09-28 15:23 | Emergency Department Note ---
Impression & Plan Lower back pain, Sciatica, Left leg pain, Herniated disc, Failure of outpatient treatment ED Provider Note NAME: JENNIFER MARTI AGE: 61 SEX: M : 1960 ARRIVES VIA: Walk-In INFORMANT: [Patient] ED PROVIDER(S): [Tahir Weinstein MD] CHIEF COMPLAINT: Back pain HISTORY OF PRESENT ILLNESS: The patient is a 61-year-old male who states that 2 days ago, he fell out of his tractor trailer onto his left hip. He had immediate back discomfort. He was seen in the ED 2 days ago, on the . X-rays of his spine and hip were unremarkable. He was discharged with ibuprofen, Tylenol, a Medrol Dosepak and oxycodone. The patient states that his pain has worsened and is now rating down his left leg. His left leg feels like it is burning. He feels the burning around the th igh. His left leg feels weak from the pain. There has been no fever, no urinary difficulty. No cough, cold or congestion. He describes his pain currently as severe. REVIEW OF SYSTEMS: See HPI for pertinent positives and negatives. A total of ten systems were reviewed and were otherwise negative. PMHx/PSHx: See Below SOCIAL HISTORY: See Below. PHYSICAL EXAM: GENERAL: Patient is in moderate distress from pain. HEENT: No acute trauma, normocephalic atraumatic, mucous membranes moist, no nasal congestion, no scleral icterus. NECK: No stridor, no adenopathy, no meningismus, trachea is midline. LUNGS: Clear to auscultation bilaterally, no wheeze, no rhonchi, breath sounds equal. HEART: Without murmurs gallops or rubs, regular rate and rhythm. ABDOMEN: Soft, nontender, bowel sounds positive, no peritonitis. EXTREMITIES: No cyanosis or edema, full range of motion of all the joints without pain or difficulty, no signs for acute trauma. NEUROLOGIC: Oriented x 3, no acute motor or sensory deficits, no focal weakness. He has no reflex of the left patella. The left Achilles, right Achilles and right patella have 2 out of 4 reflexes. SKIN: No rash, no jaundice, no diaphoresis. Back: No bony step-off. DIFFERENTIAL DIAGNOSIS: Lumbar disc disease, lumbar fracture, nerve impingement, sciatica, hematoma equina syndrome, disc herniation, among others. EMERGENCY DEPARTMENT COURSE/PROCEDURES: MEDICAL DECISION MAKING: There is a mild leukocytosis, this could be from infection or just his recent steroid use. There is a normal hemoglobin and platelet count. No concerning electrolyte abnormality, no renal failure. Lumbar spine MRI shows significant disc disease with some disc bulging. There was some thecal encroachment as well as foraminal encroachment. On my exam, the patient had no reflex of the left patella. He complained of left leg pain and numbness. The patient has not done well as an outpatient on his Medrol Dosepak or oxycodone. He presents in severe pain. The patient was given IV Toradol, IV Decadron, IV Ativan, IV morphine and IV Zofran. He required IV Dilaudid for additional pain control. He was given a 500 cc saline bolus. I did speak with Dr. Figueroa of orthopedics. Patient would benefit from hospitalization and an evaluation tomorrow from spinal surgery as well as pain management. He is currently in no condition be discharged home. He has failed his outpatient management. I spoke with the patient and case management. The on-call hospitalist was co nsulted. Past Med/Surg History Medical History Asthma Family history of reaction to anesthesia MOTHER HAD HARD TIME WAKING UP Hypercholesterolemia Hypertension Right lumbar radiculopathy Sciatica Spinal stenosis Surgical History H/O hernia repair H/O repair of rotator cuff RIGHT History of colonoscopy S/P epidural steroid injection Family History Father , 72 Myocardial infarction Hx of CABG Stroke Diabetes Grandfather (Paternal) COPD (chronic obstructive pulmonary disease) Diabetes Grandmother (Maternal) Colon cancer Mother Diabetes Family/Other Pancreatic cancer FH: uterine cancer Thyroid disorder Grandmother (Paternal) Diabetes Social History Smoking Status: Never smoker Second Hand Exposure: No; Hx Alcohol Use: Yes Hx Substance Use: No Preferred Language: Luxembourgish Communication Ability: Effective Water Quality Technician Required: No Beliefs That Will Affect Care: None Current Living Situation: Spouse Feels Safe at Home: Yes Assistive Devices: Glasses Allergies Allergies Allergy/AdvReac Type Severity Reaction Status Date / Time hornet venom Allergy Severe ANAPHYLAXIS Verified 08/26/21 15:52 ragweed pollen Allergy Unknown FLARES UP Verified 08/26/21 15:52 ASTHMA Bee sting Allergy Unknown Anaphylaxis Uncoded 12/08/20 07:04 DUST Allergy Unknown FLARES UP Uncoded 12/08/20 07:04 ASTHMA Home Meds Home Medications Medication Instructions Recorded Confirmed azelastine 137 mcg (0.1 %) nasal 2 sprays intranasal DAILY 10/22/18 08/26/21 spray aerosol celecoxib 100 mg capsule 100 mg PO BID 10/22/18 08/26/21 fexofenadine 180 mg tablet 180 mg PO DAILY 10/22/18 08/26/21 gabapentin 400 mg capsule 400 mg PO TID 10/22/18 08/26/21 sildenafil (pulm.hypertension) 20 20 mg PO PRN PRN Sexual Activity 12/08/18 08/26/21 mg tablet Previous Rx's Medication Instructions Recorded albuterol sulfate 2.5 mg (3 mL) inhalation QID PRN 04/15/19 shortness of breath or wheezing #180 mL epinephrine 0.3 mg/0.3 mL 0.3 mg (0.3 mL) IM ONCE PRN 06/12/19 injection, auto-injector (Auvi-Q) anaphylaxis #2 SYRINGES rosuvastatin 5 mg tablet 5 mg PO DAILY #90 tabs 01/17/21 losartan 50 mg tablet 50 mg PO QAM #90 tabs 04/26/21 fluticasone 500 mcg-salmeterol 50 1 inh inhalation BID #3 ea 07/13/21 mcg/dose blistr powdr for inhalation (Advair Diskus) cyclobenzaprine 10 mg tablet 10 mg PO Q8H PRN muscle spasm #30 07/19/21 tabs escitalopram oxalate 20 mg tablet 20 mg PO DAILY #90 tabs 08/26/21 albuterol sulfate 90 mcg/actuation 2 puff inhalation Q6H PRN 08/30/21 aerosol inhaler (Proventil HFA) shortness of breath 90 days #54 grams methylprednisolone 4 mg tablets in 4 mg PO DAILY #21 ea 09/26/21 a dose pack (Medrol (Vincent)) oxycodone 5 mg tablet 5 mg PO Q4H PRN pain #15 tabs 09/26/21 Results & Data (ED) Vital Signs Vital Signs - 24 hr 09/28/21 14:55 09/28/21 16:53 Temperature 36.7 C Temperature Source Temporal Artery Scan Pulse Rate 80 Pulse Rate [Right Finger] 68 Pulse Rhythm Regular Pulse Strength Normal Respiratory Rate 20 20 Respiratory Effort / Characteristics Non-Labored Spontaneous Non-Labored Respiratory Depth Normal Normal Respiratory Pattern Regular Blood Pressure 145/81 H Blood Pressure [Right Arm] 135/82 Blood Pressure Mean 102 Blood Pressure Mean [Right Arm] 99 Blood Pressure Position Sitting Pulse Oximetry 95 97 Oxygen Delivery Method Room Air Room Air Sepsis Recent Fever Within 48 Hours No Sepsis New/Unexplained Change in Mental Status N/A Sepsis Action Taken by Nursing No Action Required Home Medications Current Medication List: was personally reviewed by me Laboratory Data Attestation: I reviewed the patient's lab results. Result diagrams: 09/28/21 15:31 09/28/21 15:31 Lab Results 09/28/21 09/28/21 Range/Units 15:31 15:31 WBC 14.56 H (4.8-10.8) K/ul RBC 5.00 (4.63-6.08) M/uL Hgb 16.6 (14.0-18.0) g/dl Hct 48.4 (40.1-51.0) % MCV 96.8 (80.0-100.0) fL MCH 33.2 (25.0-34.0) pg MCHC 34.3 (32.0-36.0) g/dL RDW Std Deviation 44.7 (36.4-46.3) fL RDW Coeff of Veronica 12.6 (11.5-14.5) % Plt Count 225 (130-400) K/uL MPV 11.1 (9.4-12.4) fL Immature Gran % (Auto) 0.8 % Neut % (Auto) 74.6 % Lymph % (Auto) 12.3 % [place] % (Auto) 11.5 % Eos % (Auto) 0.3 % Baso % (Auto) 0.5 % Neut # (Auto) 10.87 H (1.4-6.5) K/uL Lymph # (Auto) 1.79 (1.2-3.4) K/uL [place] # (Auto) 1.67 H (0.24-0.82) K/uL Eos # (Auto) 0.05 (0-0.50) K/uL Baso # (Auto) 0.07 (0-0.2) K/uL Immature Gran # (Auto) 0.11 H (0.00-0.02) K/uL Sodium 134 L (136-145) mmol/L Potassium 4.3 (3.5-5.1) mmol/L Chloride 102 (98-107) mmol/L Carbon Dioxide 23 (21-32) mmol/L Anion Gap 9 (3-11) BUN 32 H (6-23) mg/dl Creatinine 1.12 (0.6-1.4) mg/dl Est Cr Clr Drug Dosing 76.0 ml/min Est GFR ( Amer) 81.7 ml/min Est GFR (Non-Af Amer) 70.5 ml/min BUN/Creatinine Ratio 28.6 H (10-20) Glucose 128 H (70-99(Fasting)) mg/dl Calcium 9.6 (8.5-10.1) mg/dl Administered Medications Discontinued Medications Dexamethasone Sodium Phosphate (DexamethasonePf 10 Mg/Ml Vial) 10 mg IV NOW ONE Stop: 09/28/21 15:18 Last Admin: 09/28/21 15:47 Dose: 10 mg Documented By: MARIA ISABEL Hydromorphone HCl (Hydromorphone Inj 1 Mg/Ml Syringe) 1 mg IV NOW STA Stop: 09/28/21 16:50 Last Admin: 09/28/21 16:55 Dose: 1 mg Documented By: MYLES Sodium Chloride (Nss 1000ml) 500 mls @ 999 mls/hr IV .Q31M ONE Stop: 09/28/21 15:42 Last Infusion: 09/28/21 16:24 Dose: 0 mls/hr Documented By: MARIA ISABEL Admin: 09/28/21 15:38 Dose: 999 mls/hr Documented By: MARIA ISABEL Ketorolac Tromethamine (Ketorolac Tromethamine 15 Mg/Ml Vial) 15 mg IV NOW STA Stop: 09/28/21 15:13 Last Admin: 09/28/21 15:38 Dose: 15 mg Documented By: MARIA ISABEL Lorazepam (Lorazepam 2 Mg/1 Ml Vial) 0.5 mg IV NOW STA; Protocol Stop: 09/28/21 15:18 Last Admin: 09/28/21 15:47 Dose: 0.5 mg Documented By: MARIA ISABEL Morphine Sulfate (Morphine Sulfate 10 Mg/Ml Carp/Vial) 6 mg IV NOW STA Stop: 09/28/21 15:13 Last Admin: 09/28/21 15:39 Dose: 6 mg Documented By: MARIA ISABEL Ondansetron HCl (Ondansetron Inj 2 Mg/Ml 2 Ml Vial) 4 mg IV NOW STA Stop: 09/28/21 15:13 Last Admin: 09/28/21 15:39 Dose: 4 mg Documented By: MARIA ISABEL Imaging Data Radiologist's Impression: Lumbar Spine MRI 09/28/21 15:17 MR lumbar spine wo con CLINICAL HISTORY: back and left leg pain, status post fall. COMPARISON: 05/03/2015 TECHNIQUE: Multiplanar multisequence images of the Lumbar Spine were performed without contrast. FINDINGS: There is no evidence for vertebral body fracture. The heights of the vertebral bodies are maintained. The vertebral bodies are in anatomic alignment. Discogenic changes are present involving vertebral body endplates at L4-5. Homogeneous marrow signal is seen without evidence for marrow edema or marrow replacement. T12-L1: The disc space height is maintained. There are no focal disc protrusions or extrusions identified. The thecal sac and epidural fat are maintained. The neural foramen are patent bilaterally. There is no evidence for nerve root encroachment. The facet joints are within normal limits. L1-2: The disc space height is maintained. There are no focal disc protrusions or extrusions identified. The thecal sac and epidural fat are maintained. The neural foramen are patent bilaterally. There is no evidence for nerve root encroachment. The facet joints are within normal limits. L2-3: Compared to previous examination, there is moderate disc space narrowing with a 6 mm broad-based disc protrusion/herniation present. This encroaches upon the thecal sac anteriorly and upon the origins of the neural foramen bilaterally. Moderate hypertrophic facet joint disease with thickening of ligamentum flavum is also present bilaterally. The combination of these findings produce moderate to marked central canal stenosis and asymmetric moderate left foraminal stenosis when compared to the right. L3-4: Compared to previous examination, there is now moderate disc space narrowing with a 3 to 4 mm broad-based disc protrusion/herniation present. This encroaches upon the thecal sac anteriorly and upon the origins of the neural foramen bilaterally. Moderate hypertrophic facet joint disease with thickening of ligamentum flavum is present bilaterally. The combination of these findings produce moderate central canal stenosis and bilateral foraminal stenosis, left greater than right. L4-5: Compared to the previous examination, there is moderate disc space narrowing with a 4 to 5 mm broad-based disc protrusion /herniation present. There is encroachment upon the thecal sac anteriorly and upon the right neural foramen when compared to the left. Moderate hypertrophic facet joint disease with thickening of ligamentum flavum is present bilaterally. The combination of these findings produce mild central canal stenosis and moderate to marked right foraminal stenosis. L5-S1: There is marked disc space narrowing with disc/osteophyte complex again seen projecting to the left side. This encroaches upon the thecal sac at this site and upon the left S1 nerve root as it enters the lateral recess. Mild left foraminal encroachment is also present. No significant right foraminal enc roachment is seen . No other nerve root impingement is identified. Mild hypertrophic facet joint disease present bilaterally. IMPRESSION: 1. Compared to the previous examination, there has been significant interval worsening of degenerative disc and degenerative facet joint disease from L2 through S1. 2. Segmental herniated discs and spinal stenosis are present as delineated at each disc space level above. ACT 112: Negative or not required by law. Electronically signed by: Jonathan Palomino M.D. 09/28/2021 4:54 PM Discharge Plan Visit Data Chief Complaint: Back Injury/Pain Stated Complaint: FALL, BACK INTO LEGS ED Provider: Tahir Weinstein Discharge Problem: Lower back pain, Sciatica, Left leg pain, Herniated disc, Failure of outpatient treatment Patient Disposition: Admitted As Inpatient Condition: Fair Forms Stand Alone Forms: [facility] Prescriptions Prescriptions: No Action epinephrine [Auvi-Q] 0.3 mg/0.3 mL auto-injector 0.3 mg IM ONCE PRN (Reason: anaphylaxis) Qty: 2 3RF rosuvastatin 5 mg tablet 5 mg PO DAILY Qty: 90 3RF losartan 50 mg tablet 50 mg PO QAM Qty: 90 3RF fluticasone propion-salmeterol [Advair Diskus] 500-50 mcg/dose blister with device 1 inh INH BID Qty: 3 3RF Rx Instructions: PLEASE DISPENSE 90 DAY SUPPLY WITH 3 REFILLS cyclobenzaprine 10 mg tablet 10 mg PO Q8H PRN (Reason: muscle spasm) Qty: 30 1RF albuterol sulfate [Proventil HFA] 90 mcg/actuation HFA aerosol inhaler 2 puff INH Q6H PRN (Reason: shortness of breath) 90 Days Qty: 54 3RF escitalopram oxalate 20 mg tablet 20 mg PO DAILY Qty: 90 3RF azelastine 137 mcg (0.1 %) aerosol,spray 2 sprays INTNAS DAILY celecoxib 100 mg capsule 100 mg PO BID fexofenadine 180 mg tablet 180 mg PO DAILY gabapentin 400 mg capsule 400 mg PO TID sildenafil (pulm.hypertension) 20 mg tablet 20 mg PO PRN PRN (Reason: Sexual Activity) Label Comments: take 2-5 tablets as needed 1 hour prior to need albuterol sulfate 2.5 mg /3 mL (0.083 %) solution for nebulization 2.5 mg INH QID PRN (Reason: shortness of breath or wheezing) Qty: 180 0RF methylprednisolone [Medrol (Vincent)] 4 mg tablets,dose pack 4 mg PO DAILY Qty: 21 0RF Rx Instructions: Per package instructions oxycodone 5 mg tablet 5 mg PO Q4H PRN (Reason: pain) Qty: 15 0RF Referrals Referrals: Claudette Baca PA-C [Primary Care Provider] -
[2021-09-28 15:49] LABS: Basophils # (auto) 0.07 K/uL (0-0.2); Basophils % (auto) 0.5 %; Eosinophils # (auto) 0.05 K/uL (0-0.50); Eosinophils % (auto) 0.3 %; Hematocrit (blood only) 48.4 % (40.1-51.0); Hemoglobin 16.6 g/dl (14.0-18.0); Immature Granulocytes # (auto) 0.11 K/uL (0.00-0.02); Immature Granulocytes % (auto) 0.8 %; Lymphocytes # (auto) 1.79 K/uL (1.2-3.4); Lymphocytes % (auto) 12.3 %; Mean Corpuscular Hemoglobin 33.2 pg (25.0-34.0); Mean Corpuscular Hgb Conc 34.3 g/dL (32.0-36.0); Mean Corpuscular Volume 96.8 fL (80.0-100.0); Mean Platelet Volume 11.1 fL (9.4-12.4); Monocytes # (auto) 1.67 K/uL (0.24-0.82); Monocytes % (auto) 11.5 %; Neutrophils # (auto) 10.87 K/uL (1.4-6.5); Neutrophils % (auto) 74.6 %; Platelet Count 225 K/uL (130-400); RDW Coefficient of Variation 12.6 % (11.5-14.5); RDW Standard Deviation 44.7 fL (36.4-46.3); White Blood Count 14.56 K/ul (4.8-10.8)
[2021-09-28 16:16] LABS: BUN Creatinine Ratio 28.6 (10-20); Calcium 9.6 mg/dl (8.5-10.1); Est GFR (African American) 81.7 ml/min; Est GFR (Non-African American) 70.5 ml/min; Potassium 4.3 mmol/L (3.5-5.1)
[2021-09-28] MEDS ORDERED: HYDROmorphone INJ 1 MG/ML SYRINGE IV STA (16:49)
--- NOTE | 2021-09-28 16:56 | Magnetic Resonance Report ---
MR lumbar spine wo con CLINICAL HISTORY: back and left leg pain, status post fall. COMPARISON: 05/03/2015 TECHNIQUE: Multiplanar multisequence images of the Lumbar Spine were performed without contrast. FINDINGS: There is no evidence for vertebral body fracture. The heights of the vertebral bodies are maintained. The vertebral bodies are in anatomic alignment. Discogenic changes are present involving vertebral b ajay endplates at L4-5. Homogeneous marrow signal is seen without evidence for marrow edema or marrow replacement. T12-L1: The disc space height is maintained. There are no focal disc protrusions or extrusions ident ified. The thecal sac and epidural fat are maintained. The neural foramen are patent bilaterally. Th ere is no evidence for nerve root encroachment. The facet joints are within normal limits. L1-2: The disc space height is maintained. There are no focal disc protrusions or extrusions identi fied. The thecal sac and epidural fat are maintained. The neural foramen are patent bilaterally. The re is no evidence for nerve root encroachment. The facet joints are within normal limits. L2-3: Compared to previous examination, there is moderate disc space narrowing with a 6 mm broad-ba sed disc protrusion/herniation present. This encroaches upon the thecal sac anteriorly and upon the origins of the neural foramen bilaterally. Moderate hypertrophic facet joint disease with thickening of ligamentum flavum is also present bilaterally. The combination of these findings produce moderate to marked central canal stenosis and asymmetric moderate left foraminal stenosis when compared to the right. L3-4: Compared to previous examination, there is now moderate disc space narrowing with a 3 to 4 mm broad-based disc protrusion/herniation present. This encroaches upon the thecal sac anteriorly and upon the origins of the neural foramen bilaterally. Moderate hypertrophic facet joint disease with th ickening of ligamentum flavum is present bilaterally. The combination of these findings produce moder ate central canal stenosis and bilateral foraminal stenosis, left greater than right. L4-5: Compared to the previous examination, there is moderate disc space narrowing with a 4 to 5 mm broad-based disc protrusion /herniation present. There is encroachment upon the thecal sac anterior ly and upon the right neural foramen when compared to the left. Moderate hypertrophic facet joint dis ease with thickening of ligamentum flavum is present bilaterally. The combination of these findings p roduce mild central canal stenosis and moderate to marked right foraminal stenosis. L5-S1: There is marked disc space narrowing with disc/osteophyte complex again seen projecting to th e left side. This encroaches upon the thecal sac at this site and upon the left S1 nerve root as it enters the lateral recess. Mild left foraminal encroachment is also present. No significant right fo raminal encroachment is seen . No other nerve root impingement is identified. Mild hypertrophic facet joint disease present bilaterally. IMPRESSION: 1. Compared to the previous examination, there has been significant interval worsening of degenerativ e disc and degenerative facet joint disease from L2 through S1. 2. Segmental herniated discs and spinal stenosis are present as delineated at each disc space level a mi. ACT 112: Negative or not required by law. Electronically signed by: Jonathan Palomino M.D. 09/28/2021 4:54 PM
--- NOTE | 2021-09-28 18:18 | History & Physical Report ---
Date of Service September 28, 2021 Assessment & Plan (1) Left lumbar radiculitis: Plan: Worsening degenerative disease on MRI. - Pain control PRN - Lidocaine patch and heat - Baclofen PRN - Gabapentin - Orthopedic spine c/s in the morning (2) Hypertension: Plan: BP in the ER is 135/80. - Continue losartan (3) Chronic idiopathic urticaria: Plan: - Continue fexofenadine (4) Asthma: Plan: No wheezing today. - Continue home maintenance inhaler (or formulary) - Albuterol PRN (5) DVT prophylaxis: Plan: SCDs - Hold heparin until after seen by Dr. Figueroa History of Present Illness Primary Care Provider: Claudette Baca PA-C 61yo M w/ hx of chronic back problems, HTN, HLD who presents with acute back pain. Reports he fell off a tractor trailer step on 09/26. Per notes, he just missed the last step and fell to the ground on his left side. He came to the ER on 09/26 and was given oxycodone and discharged, but the pain was too bad and he returned. He reports that this morning, he tried to take a shower, and it felt like "the skin was burning off [his] leg," and he decided to come to the ER. In the ER, a lumbar MRI was done which showed significant interval worsening of degenerative disc and degenerative facet joint disease from L2 through S1. Dr. Figueroa was called and asked that the patient be admitted to medicine for evaluation in the morning. Allergies Allergy/AdvReac Type Severity Reaction Status Date / Time hornet venom Allergy Severe ANAPHYLAXIS Verified 08/26/21 15:52 ragweed pollen Allergy Unknown FLARES UP Verified 08/26/21 15:52 ASTHMA Bee sting Allergy Unknown Anaphylaxis Uncoded 12/08/20 07:04 DUST Allergy Unknown FLARES UP Uncoded 12/08/20 07:04 ASTHMA Home Medications Medication Instructions Recorded Confirmed Type azelastine 137 mcg (0.1 %) nasal 2 sprays intranasal DAILY 10/22/18 08/26/21 History spray aerosol celecoxib 100 mg capsule 100 mg PO BID 10/22/18 08/26/21 History fexofenadine 180 mg tablet 180 mg PO DAILY 10/22/18 08/26/21 History gabapentin 400 mg capsule 400 mg PO TID 10/22/18 08/26/21 History sildenafil (pulm.hypertension) 20 20 mg PO PRN PRN Sexual Activity 12/08/18 08/26/21 History mg tablet albuterol sulfate 2.5 mg (3 mL) inhalation QID PRN 04/15/19 02/17/21 Rx shortness of breath or wheezing #180 mL epinephrine 0.3 mg/0.3 mL 0.3 mg (0.3 mL) IM ONCE PRN 06/12/19 08/26/21 Rx injection, auto-injector (Auvi-Q) anaphylaxis #2 SYRINGES rosuvastatin 5 mg tablet 5 mg PO DAILY #90 tabs 01/17/21 08/26/21 Rx losartan 50 mg tablet 50 mg PO QAM #90 tabs 04/26/21 08/26/21 Rx fluticasone 500 mcg-salmeterol 50 1 inh inhalation BID #3 ea 07/13/21 08/26/21 Rx mcg/dose blistr powdr for inhalation (Advair Diskus) cyclobenzaprine 10 mg tablet 10 mg PO Q8H PRN muscle spasm #30 07/19/21 08/26/21 Rx tabs escitalopram oxalate 20 mg tablet 20 mg PO DAILY #90 tabs 08/26/21 08/26/21 Rx albuterol sulfate 90 mcg/actuation 2 puff inhalation Q6H PRN 08/30/21 Rx aerosol inhaler (Proventil HFA) shortness of breath 90 days #54 grams methylprednisolone 4 mg tablets in 4 mg PO DAILY #21 ea 09/26/21 Rx a dose pack (Medrol (Vincent)) oxycodone 5 mg tablet 5 mg PO Q4H PRN pain #15 tabs 09/26/21 Rx Past Med/Surg History Medical History (Updated 09/28/21 @ 18:19 by Jong Walker MD) Asthma Family history of reaction to anesthesia MOTHER HAD HARD TIME WAKING UP Hypercholesterolemia Hypertension Right lumbar radiculopathy Sciatica Spinal stenosis Surgical History H/O hernia repair H/O repair of rotator cuff RIGHT History of colonoscopy S/P epidural steroid injection Family History Father , 72 Myocardial infarction Hx of CABG Stroke Diabetes Grandfather (Paternal) COPD (chronic obstructive pulmonary disease) Diabetes Grandmother (Maternal) Colon cancer Mother Diabetes Family/Other Pancreatic cancer FH: uterine cancer Thyroid disorder Grandmother (Paternal) Diabetes Social History Smoking Status: Never smoker Second Hand Exposure: No; Hx Alcohol Use: Yes Hx Substance Use: No Preferred Language: Swedish Communication Ability: Effective Hydraulics Engineer Required: No Beliefs That Will Affect Care: None Current Living Situation: Spouse Feels Safe at Home: Yes Assistive Devices: Glasses Review of Systems Review of Systems: All systems reviewed & are unremarkable except as noted in HPI & below Physical Exam Constitutional: WD/WN, vitals as above Eyes: EOM intact bilaterally; no conjunctival abnormality ENMT: external ear and nose normal, oropharynx normal Neck: trachea midline, no thyromegaly normal visual inspection Respiratory: normal respiratory effort, lungs clear to auscultation no respiratory distress Cardiovascular: RRR, no murmur, no edema Gastrointestinal (Abdomen): Inspection/Auscultation: abdomen normal to inspection; abdomen not distended Musculoskeletal: no cyanosis or clubbing, extremities motor strength 5/5 Skin: no rashes, warm and dry Neurologic: moves all extremities and awake Psychiatric: Orientation: alert, oriented to person and cooperative Results & Data Results & Data ([facility]) Vital Signs (Past 12 Hours) Vital Signs Temp Pulse Pulse Resp BP BP Pulse Ox 09/28/21 16:53 68 20 135/82 97 09/28/21 14:55 36.7 C 80 20 145/81 H 95 O2 Del Method 09/28/21 16:53 Room Air 09/28/21 14:55 Room Air Code Status & VTE Plan VTE Prophylaxis Plan VTE Prophylaxis will be ordered: Yes PG Care Time/CCT Total # of Minutes Spent Total Time Spent with Patient: Total time spent is greater than 50% in coordination of care (as documented) at patient's floor/unit and/or counseling patient: Coding Level of Care Code INT OBSERVATION CARE 70M LVL 3 Diagnoses Left lumbar radiculitis M54.16 Hypertension I10 Chronic idiopathic urticaria L50.1 Asthma J45.909 DVT prophylaxis Z29.9
[2021-09-28] MEDS ORDERED: ALBUTEROL HFA 8 GM INHALER INH PRN (20:34)
[2021-09-28] MEDS ORDERED: LIDOCAINE 5% 1 PATCH TD SCH (20:34)
[2021-09-28] MEDS ORDERED: ONDANSETRON INJ 2 MG/ML 2 ML VIAL IV PRN (20:34)
[2021-09-28] MEDS: HYDROmorphone INJ 0.5 MG/0.5 ML SYR IV PRN (20:58)
[2021-09-28] MEDS: ACETAMINOPHEN 500 MG TAB PO SCH (20:58)
[2021-09-28] MEDS: GABAPENTIN 400 MG CAP PO SCH (21:21)
[2021-09-28] MEDS: KETOROLAC TROMETHAMINE 15 MG/ML VIAL IV SCH (21:22)
[2021-09-28] MEDS: LIDOCAINE 5% 1 PATCH TD SCH (21:22)
[2021-09-28] MEDS: oxyCODONE HCL IR 5 MG TAB (IMMEDIATE RELEASE) PO PRN (21:46)
[2021-09-29 06:13] LABS: Hemoglobin 16.4 g/dl (14.0-18.0); Mean Corpuscular Hemoglobin 33.5 pg (25.0-34.0); Mean Corpuscular Hgb Conc 34.9 g/dL (32.0-36.0); Mean Corpuscular Volume 95.9 fL (80.0-100.0); Mean Platelet Volume 11.1 fL (9.4-12.4); Platelet Count 226 K/uL (130-400); RDW Coefficient of Variation 12.5 % (11.5-14.5); RDW Standard Deviation 44.5 fL (36.4-46.3); White Blood Count 12.12 K/ul (4.8-10.8)
[2021-09-29 06:46] LABS: BUN Creatinine Ratio 37.5 (10-20); Creatinine Clr Calc Pharmacy 88.7 ml/min; Est GFR (African American) 98.5 ml/min; Magnesium 2.3 mg/dl (1.7-2.4); Potassium 4.4 mmol/L (3.5-5.1)
--- NOTE | 2021-09-29 08:17 | Hospitalist Progress Note ---
Date of Service September 29, 2021 Assessment & Plan (1) Left lumbar radiculitis: Plan: Chronic lumbar back pain, following with Dr Leos Recent acute trauma while working/falling from truck step and landing on L side, had come to ER and sent with oral pain control/steroids with continued worsening symptoms MRI Lumbar Spine: * 1. Compared to the previous examination, there has been significant interval worsening of degenerative disc and degenerative facet joint disease from L2 through S1. * 2. Segmental herniated discs and spinal stenosis are present as delineated at each disc space level above. 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 Albuterol HFA prn Monitor (5) Elevated hemoglobin A1c: Plan: A1c prior 5.10 August 2021 Monitor AM glucose/add ISS if on steroids post-operatively (6) DVT prophylaxis: Plan: SCDs for now, ambulation w/ pain control encouraged Avoiding chemical as plans for OR tomrorow Plan NPO after midnight Alerted CM to follow given patient to be under workmans comp as initial injury occurred at work Admission and Anticipated Discharge Date Admission Date: September 28, 2021 Supervising Physician Co-Signing Physician Notes PA Supervision Note: I did not personally see or examine the patient today, but I verified all odom points of EMILIE Bourne's assessment and plan with the following exceptions/additions: dc toradol to avoid NSAIDs prior to spine surgery Check preop ECG but is at average perioperative risk for this intermediate risk surgery and should proceed as planned Subjective Patient evaluated this afternoon, remains in ER holding. Pain currently much better controlled at home. Initial accident earlier in the week hauling [place] back from [place], raining and glassed fogs and he threw them up into the truck and thought was on the step but then fell to land on his left side. Had to have assistance of co-workers to get up then travel 150miles back home. Came to ER w/ morphine IV and sent home on PO pain meds and steroids and pain worsened to left back/buttocks/leg with shooting nerve pain to the level of his knee. Seen by Dr Figueroa and plans for surgical intervention tomorrow. No BM since Sunday and could be from pain medication, no abd pain. Ordering bowel regimen and encourage ambulation if pain control ok. Hx asthma but uses inhaler as needed for weather and depending on what they are hauling. This is under workmans comp. Will alert CM to follow up. Wants to proceed with surgery rather than consider injections with Dr Leos, which is who he has been following with for chronic back pain issues. No CP/SOb, syncope, palpitations, lightheadedness or other concerns at this time. Discussed expected course. Review of Systems Review of Systems: All systems reviewed & are unremarkable except as noted in HPI & below Physical Exam Physical Exam: General: WD/WN male sitting up in bed, NAD, getting pain medication currently HEENT; head normocephalic, atraumatic, mmm , trachea midline without deviation Resp: CTAB, no w/c/r, on room air 98% CV: RRR, no m/r/g, no edema, pulses palpable GI: +BS, +distended, firm, non-tender, no guarding or rigidity : no messer, no CVA tenderness MSK/Neuro: moves all extremities, follows commands, decreased strength against resistance to LLE, decreased patellar DTR on the LEFT sensation intact to b/l LE +straight leg on the L Skin: warm, dry Results & Data Results & Data ([facility]) Vital Signs (Past 12 Hours) Vital Signs Temp Pulse Resp BP Pulse Ox O2 Del Method 09/29/21 06:00 66 16 148/78 H 95 Room Air 09/29/21 04:02 66 14 131/76 93 Room Air 09/29/21 01:30 72 16 172/74 H 95 Room Air 09/28/21 21:00 37.0 C 82 20 145/82 H 96 Room Air 09/28/21 20:34 Room Air Laboratory Results 09/29/21 09/29/21 09/28/21 Range/Units 05:43 05:43 17:32 WBC 12.12 H (4.8-10.8) K/ul RBC 4.90 (4.63-6.08) M/uL Hgb 16.4 (14.0-18.0) g/dl Hct 47.0 (40.1-51.0) % MCV 95.9 (80.0-100.0) fL MCH 33.5 (25.0-34.0) pg MCHC 34.9 (32.0-36.0) g/dL RDW Std Deviation 44.5 (36.4-46.3) fL RDW Coeff of Veronica 12.5 (11.5-14.5) % Plt Count 226 (130-400) K/uL MPV 11.1 (9.4-12.4) fL Immature Gran % (Auto) % Neut % (Auto) % Lymph % (Auto) % Baker % (Auto) % Eos % (Auto) % Baso % (Auto) % Neut # (Auto) (1.4-6.5) K/uL Lymph # (Auto) (1.2-3.4) K/uL Baker # (Auto) (0.24-0.82) K/uL Eos # (Auto) (0-0.50) K/uL Baso # (Auto) (0-0.2) K/uL Immature Gran # (Auto) (0.00-0.02) K/uL Sodium 136 (136-145) mmol/L Potassium 4.4 (3.5-5.1) mmol/L Chloride 104 (98-107) mmol/L Carbon Dioxide 24 (21-32) mmol/L Anion Gap 8 (3-11) BUN 36 H (6-23) mg/dl Creatinine 0.96 (0.6-1.4) mg/dl Est Cr Clr Drug Dosing 88.7 ml/min Est GFR ( Amer) 98.5 ml/min Est GFR (Non-Af Amer) 85.0 ml/min BUN/Creatinine Ratio 37.5 H (10-20) Glucose 139 H (70-99(Fasting)) mg/dl Calcium 9.0 (8.5-10.1) mg/dl Magnesium 2.3 (1.7-2.4) mg/dl SARS-CoV-2, RNA, NAAT NEGATIVE (NEGATIVE) 09/28/21 09/28/21 Range/Units 15:31 15:31 WBC 14.56 H (4.8-10.8) K/ul RBC 5.00 (4.63-6.08) M/uL Hgb 16.6 (14.0-18.0) g/dl Hct 48.4 (40.1-51.0) % MCV 96.8 (80.0-100.0) fL MCH 33.2 (25.0-34.0) pg MCHC 34.3 (32.0-36.0) g/dL RDW Std Deviation 44.7 (36.4-46.3) fL RDW Coeff of Veronica 12.6 (11.5-14.5) % Plt Count 225 (130-400) K/uL MPV 11.1 (9.4-12.4) fL Immature Gran % (Auto) 0.8 % Neut % (Auto) 74.6 % Lymph % (Auto) 12.3 % Baker % (Auto) 11.5 % Eos % (Auto) 0.3 % Baso % (Auto) 0.5 % Neut # (Auto) 10.87 H (1.4-6.5) K/uL Lymph # (Auto) 1.79 (1.2-3.4) K/uL Baker # (Auto) 1.67 H (0.24-0.82) K/uL Eos # (Auto) 0.05 (0-0.50) K/uL Baso # (Auto) 0.07 (0-0.2) K/uL Immature Gran # (Auto) 0.11 H (0.00-0.02) K/uL Sodium 134 L (136-145) mmol/L Potassium 4.3 (3.5-5.1) mmol/L Chloride 102 (98-107) mmol/L Carbon Dioxide 23 (21-32) mmol/L Anion Gap 9 (3-11) BUN 32 H (6-23) mg/dl Creatinine 1.12 (0.6-1.4) mg/dl Est Cr Clr Drug Dosing 76.0 ml/min Est GFR ( Amer) 81.7 ml/min Est GFR (Non-Af Amer) 70.5 ml/min BUN/Creatinine Ratio 28.6 H (10-20) Glucose 128 H (70-99(Fasting)) mg/dl Calcium 9.6 (8.5-10.1) mg/dl Magnesium (1.7-2.4) mg/dl SARS-CoV-2, RNA, NAAT (NEGATIVE) Diagnostic Findings Lumbar Spine MRI 09/28/21 15:17 MR lumbar spine wo con CLINICAL HISTORY: back and left leg pain, status post fall. COMPARISON: 05/03/2015 TECHNIQUE: Multiplanar multisequence images of the Lumbar Spine were performed without contrast. FINDINGS: There is no evidence for vertebral body fracture. The heights of the vertebral bodies are maintained. The vertebral bodies are in anatomic alignment. Discogenic changes are present involving vertebral body endplates at L4-5. Homogeneous marrow signal is seen without evidence for marrow edema or marrow replacement. T12-L1: The disc space height is maintained. There are no focal disc protrusions or extrusions identified. The thecal sac and epidural fat are main tained. The neural foramen are patent bilaterally. There is no evidence for nerve root encroachment. The facet joints are within normal limits. L1-2: The disc space height is maintained. There are no focal disc protrusions or extrusions identified. The thecal sac and epidural fat are maintained. The neural foramen are patent bilaterally. There is no evidence for nerve root encroachment. The facet joints are within normal limits. L2-3: Compared to previous examination, there is moderate disc space narrowing with a 6 mm broad-based disc protrusion/herniation present. This encroaches up on the thecal sac anteriorly and upon the origins of the neural foramen bilaterally. Moderate hypertrophic facet joint disease with thickening of ligamentum flavum is also present bilaterally. The combination of these findings produce moderate to marked central canal stenosis and asymmetric moderate left foraminal stenosis when compared to the right. L3-4: Compared to previous examination, there is now moderate disc space narrowing with a 3 to 4 mm broad-based disc protrusion/herniation present. This encroaches upon the thecal sac anteriorly and upon the origins of the neural foramen bilaterally. Moderate hypertrophic facet joint disease with thickening of ligamentum flavum is present bilaterally. The combination of these findings produce moderate central canal stenosis and bilateral foraminal stenosis, left greater than right. L4-5: Compared to the previous examination, there is moderate disc space narrowing with a 4 to 5 mm broad-based disc protrusion /herniation present. T here is encroachment upon the thecal sac anteriorly and upon the right neural foramen when compared to the left. Moderate hypertrophic facet joint disease with thickening of ligamentum flavum is present bilaterally. The combination of these findings produce mild central canal stenosis and moderate to marked right foraminal stenosis. L5-S1: There is marked disc space narrowing with disc/osteophyte complex again seen projecting to the left side. This encroaches upon the thecal sac at this site and upon the left S1 nerve root as it enters the lateral recess. Mild left foraminal encroachment is also present. No significant right foraminal encroachment is seen . No other nerve root impingement is identified. Mild hypertrophic facet joint disease present bilaterally. IMPRESSION: 1. Compared to the previous examination, there has been significant interval worsening of degenerative disc and degenerative facet joint disease from L2 through S1. 2. Segmental herniated discs and spinal stenosis are present as delineated at each disc space level above. ACT 112: Negative or not required by law. Electronically signed by: Jonathan Palomino M.D. 09/28/2021 4:54 PM PG Care Time/CCT Total # of Minutes Spent Total Time Spent with Patient: Total time spent is greater than 50% in coordination of care (as documented) at patient's floor/unit and/or counseling patient: Coding Level of Care Code 50070 Subseq Hosp Care Lvl 3 Diagnoses Left lumbar radiculitis M54.16 Hypertension I10 Chronic idiopathic urticaria L50.1 Asthma J45.909 Elevated hemoglobin A1c R73.09 DVT prophylaxis Z29.9
[2021-09-29] MEDS: ACETAMINOPHEN 500 MG TAB PO SCH ×3 (08:50→20:27)
[2021-09-29] MEDS: ESCITALOPRAM OXALATE 20 MG TAB PO SCH (08:51)
[2021-09-29] MEDS: FEXOFENADINE HCL 180 MG TAB PO SCH (08:55)
[2021-09-29] MEDS: LOSARTAN POTASSIUM 50 MG TAB PO SCH (08:55)
[2021-09-29] MEDS: FLUTICASONE/VILANTEROL 200/25MCG 14 PUFFS/INHALER INH SCH (08:55)
[2021-09-29] MEDS: FAMOTIDINE 20 MG TAB PO SCH (08:55)
[2021-09-29] MEDS: ROSUVASTATIN CALCIUM 5 MG TAB PO SCH (08:56)
[2021-09-29] MEDS: KETOROLAC TROMETHAMINE 15 MG/ML VIAL IV SCH ×2 (09:04→14:06)
[2021-09-29] MEDS: GABAPENTIN 400 MG CAP PO SCH ×2 (15:06→20:27)
--- NOTE | 2021-09-29 15:22 | Orthopedic Consultation ---
Date of Consultation September 29, 2021 Assessment & Plan (1) Lumbar disc herniation with radiculopathy: MRI lumbar spine is available for review. Demonstrates massive disc herniation L2-L3 with a component of caudal migration and foraminal extraforaminal component on the left. L3-L4 also has significant stenosis and broad-based disc protrusion with severe neural compression. Plan at this time the patient is quite miserable. He is progressive neuro deficit unable to ambulate and requiring IV narcotics to control symptoms. We discussed the treatment plan. He has had history of multiple injections over the years but never symptoms that he is dealing with at this time. He would require a lumbar decompression at L2- L3 L3-L4. I would have to compromise the facets to adequately decompress the canal certainly at the L2-L3 level on the left where the disc exits out through the foramen. This does create iatrogenic instability such requiring fusion. Risk benefits pros cons alternatives were outlined in detail. Risk include but not limited to anesthesia blindness stroke paralysis nerve damage blood loss requiring transfusion infection requiring reoperation passively marked improvement of his radiculopathy and in time improvement of his strength and overall function. At this time we will make him n.p.o. and plan for surgery in the a.m. History of Present Illness Reason for Consultation: Severe left leg pain with weakness Attending Physician: Alma Wilson MD History of Present Illness This is a 61-year-old male that presents the emergency room now for the second time secondary to severe left leg pain and weakness. He was here earlier in the week on Sunday after a fall from his truck. He states he was stepping out of the truck and missed a step and fell to the ground. It was after that time he had the onset of severe left leg pain. States the right leg is not limiting at this time. He is unable to ambulate without severe pain. He is required significant doses of IV narcotics to control his symptoms. He does not have any loss of bowel or bladder control. He is only comfortable position is sitting he cannot lie flat without severe radiculopathy. Allergies Allergy/AdvReac Type Severity Reaction Status Date / Time hornet venom Allergy Severe ANAPHYLAXIS Verified 09/28/21 22:22 ragweed pollen Allergy Unknown FLARES UP Verified 09/28/21 22:22 ASTHMA Bee sting Allergy Unknown Anaphylaxis Uncoded 09/28/21 22:22 DUST Allergy Unknown FLARES UP Uncoded 09/28/21 22:22 ASTHMA Home Medications Medication Instructions Recorded Confirmed Type celecoxib 100 mg capsule 100 mg PO BID 10/22/18 09/28/21 History fexofenadine 180 mg tablet 180 mg PO TID 10/22/18 09/28/21 History gabapentin 400 mg capsule 400 mg PO TID 10/22/18 09/28/21 History sildenafil (pulm.hypertension) 20 20 mg PO PRN PRN Sexual Activity 12/08/18 09/28/21 History mg tablet albuterol sulfate 2.5 mg (3 mL) inhalation QID PRN 04/15/19 09/28/21 Rx shortness of breath or wheezing #180 mL epinephrine 0.3 mg/0.3 mL 0.3 mg (0.3 mL) IM ONCE PRN 06/12/19 09/28/21 Rx injection, auto-injector (Auvi-Q) anaphylaxis #2 SYRINGES rosuvastatin 5 mg tablet 5 mg PO DAILY #90 tabs 01/17/21 09/28/21 Rx losartan 50 mg tablet 50 mg PO QAM #90 tabs 04/26/21 09/28/21 Rx fluticasone 500 mcg-salmeterol 50 1 inh inhalation BID #3 ea 07/13/21 09/28/21 Rx mcg/dose blistr powdr for inhalation (Advair Diskus) cyclobenzaprine 10 mg tablet 10 mg PO Q8H PRN muscle spasm #30 07/19/21 09/28/21 Rx tabs escitalopram oxalate 20 mg tablet 20 mg PO DAILY #90 tabs 08/26/21 09/28/21 Rx albuterol sulfate 90 mcg/actuation 2 puff inhalation Q6H PRN 08/30/21 09/28/21 Rx aerosol inhaler (Proventil HFA) shortness of breath 90 days #54 grams methylprednisolone 4 mg tablets in 4 mg PO DAILY #21 ea 09/26/21 09/28/21 Rx a dose pack (Medrol (Vincent)) oxycodone 5 mg tablet 5 mg PO Q4H PRN pain #15 tabs 09/26/21 09/28/21 Rx ibuprofen 200 mg tablet 600 mg PO Q6H PRN Pain 09/28/21 09/28/21 History Patient History Medical History (Updated 09/29/21 @ 15:25 by Alexandru Figueroa DO) Asthma Family history of reaction to anesthesia MOTHER HAD HARD TIME WAKING UP Hypercholesterolemia Hypertension Right lumbar radiculopathy Sciatica Spinal stenosis Surgical History H/O hernia repair H/O repair of rotator cuff RIGHT History of colonoscopy S/P epidural steroid injection Family History Father , 72 Myocardial infarction Hx of CABG Stroke Diabetes Grandfather (Paternal) COPD (chronic obstructive pulmonary disease) Diabetes Grandmother (Maternal) Colon cancer Mother Diabetes Family/Other Pancreatic cancer FH: uterine cancer Thyroid disorder Grandmother (Paternal) Diabetes Social History Smoking Status: Never smoker Second Hand Exposure: No; Do You Dip or Chew Tobacco: No; Tobacco Cessation Education Requested by Patient: No Hx Alcohol Use: No Hx Substance Use: No Preferred Language: [place] Communication Ability: Effective Jewelry Maker Required: No Beliefs That Will Affect Care: None Current Living Situation: Spouse Other Information That Helps Us Care for You: No Feels Safe at Home: Yes Safety Concerns: Feels Safe At This Time Assistive Devices: None Physical Exam Physical Exam: Patient is sitting up in bed. He demonstrates more difficulty when I have him stand. He cannot weight-bear on left lower extremity secondary to pain. Bench exam he has an absent deep tendon reflex on the left he exhibits marked dense numbness to palpation and cold on the left thigh compared to the right. He has +5-5 plantar flexion dorsiflexion extensor hallucis longus bilaterally. He has deficits to the left quadricep 4-/5 L5 5 on the right. Results & Data ([facility]) Vital Signs (Past 12 Hours) Vital Signs Temp Pulse Pulse Resp BP BP Pulse Ox 09/29/21 14:42 64 20 143/72 H 98 09/29/21 12:14 78 20 136/74 98 09/29/21 09:17 36.7 C 64 20 139/66 95 09/29/21 06:00 66 16 148/78 H 95 09/29/21 04:02 66 14 131/76 93 O2 Del Method 09/29/21 14:42 Room Air 09/29/21 12:14 Room Air 09/29/21 09:17 Nasal Cannula 09/29/21 06:00 Room Air 09/29/21 04:02 Room Air
--- NOTE | 2021-09-29 15:30 | XRay Report ---
XR chest 1V portable HISTORY: 61 years-old Male pre-op preoperative exam. COMPARISON: Chest radiograph 07/06/2012 TECHNIQUE: AP view of the chest FINDINGS: Cardiomediastinal and hilar silhouettes are within normal limits. No pneumothorax, pleural effusion, airspace consolidation or overt pulmonary edema. Spondylitic spurring of the spine. IMPRESSION: No acute process. ACT 112: Negative or not required by law. The above report was generated using voice recognition software. It may contain grammatical, syntax o r spelling errors. Electronically signed by: Trevin Gonzalez M.D. 09/29/2021 3:29 PM
[2021-09-29] MEDS: DOCUSATE SODIUM/SENNA 50/8.6MG TAB PO SCH (16:01)
[2021-09-29] MEDS: LIDOCAINE 5% 1 PATCH TD SCH (20:27)
[2021-09-29] MEDS: POLYETHYLENE (MIRALAX) 17 GM PACK PO SCH (20:27)
[2021-09-30] MEDS: oxyCODONE HCL IR 5 MG TAB (IMMEDIATE RELEASE) PO PRN ×4 (01:04→23:53)
[2021-09-30] MEDS: SODIUM CHLORIDE 0.9% 1000ML 1,000 ML IV SCH ×3 (01:04→21:42)
[2021-09-30] MEDS: HYDROmorphone INJ 0.5 MG/0.5 ML SYR IV PRN (04:49)
--- NOTE | 2021-09-30 07:58 | Hospitalist Progress Note ---
Date of Service September 30, 2021 Assessment & Plan (1) Lumbar disc herniation with radiculopathy: Plan: Chronic lumbar back pain, following with Dr Leos Recent acute trauma while working/falling from truck step and landing on L side, had come to ER and sent with oral pain control/steroids with continued worsening symptoms CXR negative for acute process EKG NSR w/ PVC, no CP or SOB reported MRI Lumbar Spine: * 1. Compared to the previous examination, there has been significant interval worsening of degenerative disc and degenerative facet joint disease from L2 through S1. * 2. Segmental herniated discs and spinal stenosis are present as delineated at each disc space level above. Pain control Yylenol, baclofen, oxycodone, gabapentin, dilaudid IV prn. Toradol IV d/c given planned back surgery Increased dilaudid to 1mg as needed this morning given increased pain, ordered dose Dexamethasone 8mg IV x 1 09/30 Bowel regimen Senna/docusate, miralax. 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 Albuterol HFA prn Monitor (6) Elevated hemoglobin A1c: Plan: A1c prior 5.10 August 2021 AM glucose 101, will monitor/ISS if needed (7) DVT prophylaxis: Plan: SCDs Avoiding chemical as plans for OR (8) B12 deficiency: Plan: B12 low started B12 1000 mcg po once daily f/u as outpt Plan NPO for OR this afternoon Admission and Anticipated Discharge Date Admission Date: September 29, 2021 Supervising Physician Co-Signing Physician Notes PA Supervision Note: I did not personally see or examine the patient today, but I verified all odom points of EMILIE Bourne's assessment and plan with the following exceptions/additions: none Subjective Patient evaluated this morning, stating having increased amount of pain to his back and legs this morning with increased weakness on the left. Did have BM last evening and passing gas/no abdominal pain currently. No loss of bowel/bladder at present but unable to lay back flat due to discomfort either. No fever/chills, chest pain or shortness of breath. Discussed awaiting insurance auth prior to procedure. Patient upset about this information as hoping to be in OR already but discussed will still keep NPO for now in hopes insurance authorization is received. Questions/concerns addressed at this time. Review of Systems Review of Systems: All systems reviewed & are unremarkable except as noted in HPI & below Physical Exam Physical Exam: General: WD/WN male sitting up in bed, mildly uncomfortable at rest, just got tylenol reported HEENT; head normocephalic, atraumatic, mmm , trachea midline without deviation Resp: CTAB, no w/c/r, on room air 98% CV: RRR, no m/r/g, no edema, pulses palpable GI: +BS, +distended, firm, non-tender, no guarding or rigidity : no messer, no CVA tenderness MSK/Neuro: moves all extremities with increased pain to lower back, decreased strength against resistance LLE for quadriceps testing compared to the right, decreased patellar DTR on the left, decreased plantarflexion on the left compared to the right. +straight leg Skin: warm, dry Psych: alert, oriented, at bedside Results & Data Results & Data ([facility]) Vital Signs (Past 12 Hours) Vital Signs Temp Pulse Pulse Resp BP BP Pulse Ox 09/30/21 07:19 36.7 C 62 18 161/85 H 98 09/30/21 03:01 36.6 C 68 16 143/80 H 94 09/29/21 21:00 36.7 C 62 20 178/89 H 97 09/29/21 21:56 63 14 139/78 95 O2 Del Method 09/30/21 07:19 Room Air 09/30/21 03:01 Room Air 09/29/21 21:00 Room Air 09/29/21 21:56 Room Air Laboratory Results 09/30/21 09/30/21 09/30/21 Range/Units 10:02 10:02 10:02 WBC 10.00 (4.8-10.8) K/ul RBC 4.99 (4.63-6.08) M/uL Hgb 16.9 (14.0-18.0) g/dl Hct 46.8 (40.1-51.0) % MCV 93.8 (80.0-100.0) fL MCH 33.9 (25.0-34.0) pg MCHC 36.1 H (32.0-36.0) g/dL RDW Std Deviation 43.2 (36.4-46.3) fL RDW Coeff of Veronica 12.6 (11.5-14.5) % Plt Count 212 (130-400) K/uL MPV 11.1 (9.4-12.4) fL Sodium 137 (136-145) mmol/L Potassium 3.9 (3.5-5.1) mmol/L Chloride 107 (98-107) mmol/L Carbon Dioxide 20 L (21-32) mmol/L Anion Gap 10 (3-11) BUN 37 H (6-23) mg/dl Creatinine 1.04 (0.6-1.4) mg/dl Est Cr Clr Drug Dosing 81.9 ml/min Est GFR ( Amer) 89.4 ml/min Est GFR (Non-Af Amer) 77.1 ml/min BUN/Creatinine Ratio 35.6 H (10-20) Glucose 101 H (70-99(Fasting)) mg/dl Calcium 9.1 (8.5-10.1) mg/dl Magnesium 2.2 (1.7-2.4) mg/dl Vitamin B12 234 (180-914) pg/ml Diagnostic Findings Chest X-Ray 09/29/21 14:44 XR chest 1V portable HISTORY: 61 years-old Male pre-op preoperative exam. COMPARISON: Chest radiograph 07/06/2012 TECHNIQUE: AP view of the chest FINDINGS: Cardiomediastinal and hilar silhouettes are within normal limits. No pneumothorax, pleural effusion, airspace consolidation or overt pulmonary edema. Spondylitic spurring of the spine. IMPRESSION: No acute process. ACT 112: Negative or not required by law. The above report was generated using voice recognition software. It may contain grammatical, syntax or spelling errors. Electronically signed by: Trevin Gonzalez M.D. 09/29/2021 3:29 PM PG Care Time/CCT Total # of Minutes Spent Total Time Spent with Patient: Total time spent is greater than 50% in coordination of care (as documented) at patient's floor/unit and/or counseling patient: Coding Level of Care Code 54181 Subseq Hosp Care Lvl 3 Diagnoses Lumbar disc herniation with radiculopathy M51.16 Left lumbar radiculitis M54.16 Hypertension I10 Chronic idiopathic urticaria L50.1 Asthma J45.909 Elevated hemoglobin A1c R73.09 DVT prophylaxis Z29.9 B12 deficiency E53.8
[2021-09-30] MEDS: FLUTICASONE/VILANTEROL 200/25MCG 14 PUFFS/INHALER INH SCH (08:21)
[2021-09-30] MEDS: FAMOTIDINE 20 MG TAB PO SCH (08:22)
[2021-09-30] MEDS: LOSARTAN POTASSIUM 50 MG TAB PO SCH (08:27)
[2021-09-30] MEDS: ACETAMINOPHEN 500 MG TAB PO SCH ×2 (08:28→20:31)
[2021-09-30] MEDS: FEXOFENADINE HCL 180 MG TAB PO SCH (08:28)
[2021-09-30] MEDS: ESCITALOPRAM OXALATE 20 MG TAB PO SCH (08:28)
[2021-09-30] MEDS: GABAPENTIN 400 MG CAP PO SCH ×3 (08:30→21:46)
[2021-09-30] MEDS: DOCUSATE SODIUM/SENNA 50/8.6MG TAB PO SCH ×2 (08:31→21:43)
[2021-09-30] MEDS: ROSUVASTATIN CALCIUM 5 MG TAB PO SCH (08:33)
[2021-09-30] MEDS ORDERED: HYDROmorphone INJ 0.5 MG/0.5 ML SYR IV PRN ×2 (09:37→19:53)
[2021-09-30] MEDS: POLYETHYLENE (MIRALAX) 17 GM PACK PO SCH ×2 (09:44→20:31)
[2021-09-30 10:38] LABS: Hematocrit (blood only) 46.8 % (40.1-51.0); Hemoglobin 16.9 g/dl (14.0-18.0); Mean Corpuscular Hemoglobin 33.9 pg (25.0-34.0); Mean Corpuscular Hgb Conc 36.1 g/dL (32.0-36.0); Mean Corpuscular Volume 93.8 fL (80.0-100.0); Mean Platelet Volume 11.1 fL (9.4-12.4); Platelet Count 212 K/uL (130-400); RDW Coefficient of Variation 12.6 % (11.5-14.5); RDW Standard Deviation 43.2 fL (36.4-46.3); Red Blood Count 4.99 M/uL (4.63-6.08)
[2021-09-30] MEDS ORDERED: dexAMETHasone 8 MG in SYRINGE 0 ML IV ONE (10:45)
[2021-09-30 11:02] LABS: BUN Creatinine Ratio 35.6 (10-20); Calcium 9.1 mg/dl (8.5-10.1); Creatinine Clr Calc Pharmacy 81.9 ml/min; Est GFR (African American) 89.4 ml/min; Est GFR (Non-African American) 77.1 ml/min; Magnesium 2.2 mg/dl (1.7-2.4); Potassium 3.9 mmol/L (3.5-5.1)
[2021-09-30] MEDS: CYCLOBENZAPRINE HCL 10 MG TAB PO PRN (11:59)
[2021-09-30] MEDS ORDERED: LORazepam 0.5 MG TAB SL STA (12:41)
--- NOTE | 2021-09-30 13:51 | Anesthesiology Consultation ---
Date of Service September 30, 2021 Assessment & Plan (1) Encounter for pre-operative examination: Chart Review Chart Review: Acceptable Risk for Surgery and Patient NOT seen in Pre Admission Testing History Surgery Operation Date: 09/30/21 09:20 Proposed Procedures p L2-L3, L3-L4 Lumbar Decompression and Fusion - Alexandru Figueroa DO Height/Weight Height: 6 ft Weight: 86.6 kg Allergies Allergy/AdvReac Type Severity Reaction Status Date / Time hornet venom Allergy Severe ANAPHYLAXIS Verified 09/28/21 22:22 ragweed pollen Allergy Unknown FLARES UP Verified 09/28/21 22:22 ASTHMA Bee sting Allergy Unknown Anaphylaxis Uncoded 09/28/21 22:22 DUST Allergy Unknown FLARES UP Uncoded 09/28/21 22:22 ASTHMA Medications Home Medications Medication Instructions Recorded Confirmed Last Taken celecoxib 100 mg capsule 100 mg PO BID 10/22/18 09/28/21 09/28/21 fexofenadine 180 mg tablet 180 mg PO TID 10/22/18 09/28/21 09/28/21 gabapentin 400 mg capsule 400 mg PO TID 10/22/18 09/28/21 09/28/21 sildenafil (pulm.hypertension) 20 20 mg PO PRN PRN Sexual Activity 12/08/18 09/28/21 Unknown mg tablet albuterol sulfate 2.5 mg (3 mL) inhalation QID PRN 04/15/19 09/28/21 Unknown shortness of breath or wheezing #180 mL epinephrine 0.3 mg/0.3 mL 0.3 mg (0.3 mL) IM ONCE PRN 06/12/19 09/28/21 Unknown injection, auto-injector (Auvi-Q) anaphylaxis #2 SYRINGES rosuvastatin 5 mg tablet 5 mg PO DAILY #90 tabs 01/17/21 09/28/21 09/28/21 losartan 50 mg tablet 50 mg PO QAM #90 tabs 04/26/21 09/28/21 09/28/21 fluticasone 500 mcg-salmeterol 50 1 inh inhalation BID #3 ea 07/13/21 09/28/21 09/28/21 mcg/dose blistr powdr for inhalation (Advair Diskus) cyclobenzaprine 10 mg tablet 10 mg PO Q8H PRN muscle spasm #30 05/17/22 07/27/22 Unknown tabs escitalopram oxalate 20 mg tablet 20 mg PO DAILY #90 tabs 08/26/21 09/28/21 09/28/21 albuterol sulfate 90 mcg/actuation 2 puff inhalation Q6H PRN 08/30/21 09/28/21 Unknown aerosol inhaler (Proventil HFA) shortness of breath 90 days #54 grams methylprednisolone 4 mg tablets in 4 mg PO DAILY #21 ea 09/26/21 09/28/21 09/28/21 a dose pack (Medrol (Vincent)) oxycodone 5 mg tablet 5 mg PO Q4H PRN pain #15 tabs 09/26/21 09/28/21 09/28/21 ibuprofen 200 mg tablet 600 mg PO Q6H PRN Pain 09/28/21 09/28/21 09/28/21 Active Medications Generic Name Dose Route Start Last Admin Trade Name Freq PRN Reason Stop Dose Admin Acetaminophen 1,000 mg 09/28/21 21:00 09/30/21 08:28 Acetaminophen 500 Mg Tab PO 10/28/21 20:59 1,000 mg TID FERNANDA Administration Cyclobenzaprine HCl 10 mg 09/28/21 20:34 09/30/21 11:59 Cyclobenzaprine Hcl 10 Mg Tab PO 10/28/21 20:33 10 mg Q8H PRN Administration muscle spasm Escitalopram Oxalate 20 mg 09/29/21 09:00 09/30/21 08:28 Escitalopram Oxalate 20 Mg Tab PO 10/29/21 08:59 20 mg DAILY FERNANDA Administration Famotidine 20 mg 09/29/21 09:00 09/30/21 08:22 Famotidine 20 Mg Tab PO 10/29/21 08:59 20 mg QAM FERNANDA Administration Fexofenadine HCl 180 mg 09/29/21 09:00 09/30/21 08:28 Fexofenadine Hcl 180 Mg Tab PO 10/29/21 08:59 180 mg DAILY FERNANDA Administration Fluticasone/Vilanterol 1 puffs 09/29/21 09:00 09/30/21 08:21 Fluticasone/Vilanterol 200/25mcg 14 Puffs/Inhaler INH 10/29/21 08:59 1 puffs DAILY FERNANDA Administration Protocol Gabapentin 400 mg 09/28/21 21:00 09/30/21 08:30 Gabapentin 400 Mg Cap PO 10/28/21 20:59 400 mg TID FERNANDA Administration Hydromorphone HCl 1 mg 09/30/21 09:37 09/30/21 09:45 Hydromorphone Inj 0.5 Mg/0.5 Ml Syr IV 10/12/21 20:33 1 mg Q4H PRN Administration pain Sodium Chloride 1,000 mls @ 80 mls/hr 09/29/21 23:59 09/30/21 01:04 Nss 1000ml IV 10/29/21 23:58 80 mls/hr .[id number] FERNANDA Administration Lidocaine 1 patch 09/28/21 21:00 09/29/21 20:27 Lidocaine 5% 1 Patch TD 10/28/21 20:59 1 patch QPM FERNANDA Administration Losartan Potassium 50 mg 09/29/21 09:00 09/30/21 08:27 Losartan Potassium 50 Mg Tab PO 10/29/21 08:59 50 mg QAM FERNANDA Administration Miscellaneous 1 each 09/29/21 09:00 09/30/21 10:56 Remove Lidoderm Patch N/A 10/29/21 08:59 1 each DAILY FERNANDA Administration Oxycodone HCl 5 mg 09/28/21 20:34 09/30/21 11:57 Oxycodone Hcl Ir 5 Mg Tab (Immediate Release) PO 10/12/21 20:33 5 mg Q4H PRN Administration -8 pain Polyethylene Glycol 17 gm 09/29/21 21:00 09/30/21 09:44 Polyethylene (Miralax) 17 Gm Pack PO 10/29/21 20:59 Not Given TID FERNANDA Rosuvastatin Calcium 5 mg 09/29/21 09:00 09/30/21 08:33 Rosuvastatin Calcium 5 Mg Tab PO 10/29/21 08:59 5 mg DAILY FERNANDA Administration Senna/Docusate Sodium 1 tab 09/29/21 14:30 09/30/21 08:31 Docusate Sodium/Senna 50/8.6mg Tab PO 10/29/21 14:29 1 tab QAM FERNANDA Administration NPO Date Last Intake of Fluids: 09/29/21 Time Last Intake of Fluids: 22:00 Date Last Intake of Solids: 09/29/21 Time Last Intake of Solids: 18:00 Past Medical History Medical History Asthma Family history of reaction to anesthesia MOTHER HAD HARD TIME WAKING UP Hypercholesterolemia Hypertension Right lumbar radiculopathy Sciatica Spinal stenosis Past Family History Family History Father , 72 Myocardial infarction Hx of CABG Stroke Diabetes Grandfather (Paternal) COPD (chronic obstructive pulmonary disease) Diabetes Grandmother (Maternal) Colon cancer Mother Diabetes Family/Other Pancreatic cancer FH: uterine cancer Thyroid disorder Grandmother (Paternal) Diabetes Past Surgical History Surgical History H/O hernia repair H/O repair of rotator cuff RIGHT History of colonoscopy S/P epidural steroid injection Social History Smoking Status: Never smoker Do You Dip or Chew Tobacco: No Hx Alcohol Use: No alcohol intake frequency: holidays/special occasions only Hx Substance Use: No substance use type: does not use Physical Exam Vital Signs Last Vital Signs Temp 36.8 C 09/30/21 13:39 Pulse 74 09/30/21 13:39 Resp 18 09/30/21 13:39 BP 134/81 09/30/21 13:39 Pulse Ox 95 09/30/21 13:39 O2 Del Method 09/30/21 13:39 Testing Laboratory Results 09/30/21 10:02 09/30/21 10:02 Electrocardiogram Date: 09/30/21 Sinus rhythm with occasional Premature ventricular complexes Otherwise normal ECG When compared with ECG of 02-OCT-2016 17:33, Premature ventricular complexes are now Present Chest X-Ray Date: 09/29/21 IMPRESSION: No acute process.
[2021-09-30] MEDS ORDERED: NEOSTIGMINE METHYLSULFATE 1 MG/ML 10ML VIAL ONE (14:01)
[2021-09-30] MEDS ORDERED: fentaNYL citrate 100 MCG/2 ML VIAL ONE ×2 (14:01→16:55)
[2021-09-30] MEDS ORDERED: MIDAZOLAM HCL 1 MG/ML 2ML VIAL ONE (14:01)
[2021-09-30] MEDS ORDERED: GLYCOPYRROLATE 0.2 MG/ML VIAL ONE (14:01)
[2021-09-30] MEDS ORDERED: PROPOFOL IV EMULSION 10 MG/ML 20 ML VIAL IV ONE (14:01)
[2021-09-30] MEDS ORDERED: DEXAMETHASONE SOD INJ 4 MG/ML VIAL ONE (14:01)
[2021-09-30] MEDS ORDERED: ONDANSETRON INJ 2 MG/ML 2 ML VIAL ONE (14:01)
[2021-09-30] MEDS ORDERED: LIDOCAINE 2% MPF LOCAL 5 ML VIAL INFIL ONE (14:01)
--- NOTE | 2021-09-30 14:03 | History & Physical Bridge Note ---
Date of Service September 30, 2021 History & Physical Bridge Note I have examined the patient, reviewed the History & Physical and in the interval since the performance of the History & Physical I have noted the following changes of clinical significance: no changes noted Lumbar decompression fusion L2-L3 L3-L4
[2021-09-30] MEDS ORDERED: ceFAZolin 2,000 MG/15 ML IV PUSH IV ONE (14:11)
[2021-09-30] MEDS ORDERED: ceFAZolin 330 MG/ML 1 GM VIAL ONE (14:25)
[2021-09-30] MEDS ORDERED: BUPIVACAINE/EPINEPHRINE 0.25% 1:200,000 30 ML VIAL ONE (14:25)
[2021-09-30] MEDS ORDERED: fentaNYL citrate 100 MCG/2 ML VIAL IV PRN (14:43)
[2021-09-30] MEDS ORDERED: ATROPINE SULFATE 0.1 MG/ML 10ML SYR IV PRN (14:43)
[2021-09-30] MEDS ORDERED: HYDROmorphone INJ 1 MG/ML SYRINGE IV PRN ×2 (14:43→19:53)
[2021-09-30] MEDS ORDERED: ePHEDrine sulfate 50 MG/ML AMP IV PRN (14:43)
[2021-09-30] MEDS ORDERED: ONDANSETRON INJ 2 MG/ML 2 ML VIAL IV PRN ×2 (14:43→19:53)
[2021-09-30] MEDS ORDERED: HYDROmorphone INJ 2 MG/ML SYR/VIAL ONE (14:59)
[2021-09-30] MEDS ORDERED: KETAMINE 50 MG/5 ML SYRINGE ONE (15:23)
[2021-09-30] MEDS ORDERED: ROCURONIUM BROMIDE 10 MG/ML 5 ML VIAL IV ONE (15:34)
--- NOTE | 2021-09-30 17:15 | Operative Report ---
Post Operative Report Pre & Post Diagnosis Operation Date: 09/30/21 09:20 Pre-Op Diagnosis: Acute disc herniation L2-L3 with a far lateral component as well as severe spinal stenosis. Post-Op Diagnosis: Same I identified the patient and participated in the time-out.: Yes Procedure Operation Date: 09/30/21 09:20 Actual Procedures #1 lumbar decompression with bilateral medial facetectomies and foraminotomies of 102, L2-L3 and L3-L4. #2 posterior spinal fusion L2-L3 L3-L4. #3 placement posterior instrumentation L2-L4. #4 interbody fusion L3-L4 L4-5. #5 placement of Spira 14 x 26 mm cage at L2-L3 and 13 x 26 mm cage at L3-L4. #6 placement locally harvested morselized autograft in the posterior gutters. #7 placement of I factor model V toss in interbody space and posterior lateral gutters. Surgeon Alexandru Figueroa, Info Print Press Operator Marquis Cavazos Estimated Blood Loss 100 Findings Consistent with Post-Op Diagnosis Specimens None Indications This is a 61-year-old male who presents with severe left leg pain and progressive weakness after a fall at work and is here for urgent decompression fusion. Description of Procedure Patient was met with identified informed consent obtained. Patient was then taken to the operative suite underwent intubation placed in a prone position Yonathan table top Cr frame. All bony prominences well-padded eyes inspected to ensure no external pressure placed upon them. This point the lumbar spine was prepped and draped in the normal sterile fashion. Sharp dissection with the assistance of Bovie cautery was performed down to and exposing the lamina and transverse processes of L 2 L3 and L4 bilaterally. From a caudal cephalad fashion complete laminectomy of all 3 and L2 was performed as well as partial laminectomy of L1 addressing severe central lateral recess stenosis as well as evidence of massive acute disc herniation at L2-L3 on the left that had migrated through the foramen and with this into the extraforaminal space. After complete decompression pedicle screws were placed in L2-L3-L4 bilaterally with assistance of fluoroscopy and the properly sized frederick placed. By way of a transforaminal approach on the left complete discectomy of L3-L4 was performed endplates curetted to subcortical bleeding bone and a 13 x 26 mm spiral cage with I factor tapped in position. Then proceeded to L2-L3 and again by way of transfer approach and left complete discectomy performed endplates curetted to subcortically bone and a 14 x 26 mm spiral cage filled I factor tapped in position. The rods were then compressed locked in final position bilaterally. The transverse processes of L2-L3-L4 burred to subcortical bleeding bone. I factor combined with V toss and locally harvested morselized autograft was then placed in the posterior gutters. 15 round MOE drain inserted. The incision was then closed with 1 Vicryl the fascia 2-0 Vicryl subcutaneously and 4 Monocryl for final skin closure. Steri-Strip sterile dressings placed. Patient waken taken PACU stable condition. Please note spinal cord monitoring was utilized at the procedure no changes noted. Lastly Marquis Cavazos was present out the entire procedure and while the patient positioning complex portions of the surgery and final skin closure. I attest to the content of the Intraoperative Record and any orders documented therein. Any exceptions are noted below.
--- NOTE | 2021-09-30 17:19 | Fluoroscopy Report ---
FL lumbar spine 2-3V CLINICAL HISTORY: L2-4 DFI COMPARISON STUDY: Lumbar spine MRI September 28, 2021. FLUOROSCOPY TIME: 24 seconds. FLUOROSCOPIC IMAGES: 2 FINDINGS: Fluoroscopy was provided during L2-L3 and L3-L4 discectomies with interbody spacer placemen t. Posterior decompression and bilateral pedicle screw fusion from L2 through L4 is noted. Hardware i s intact. No unexpected radiopaque foreign bodies. IMPRESSION: Fluoroscopy provided during L2-L4 discectomy, posterior decompression and bilateral pedi briseida screw fusion. ACT 112: Negative or not required by law. Electronically signed by: Carrington More M.D. 09/30/2021 5:18 PM
[2021-09-30] MEDS ORDERED: hydrOXYzine HCl 25 MG TAB PO PRN (19:53)
[2021-09-30] MEDS ORDERED: PROMETHAZINE HCL 12.5 MG in SODIUM CHLORIDE 0.9% 50 ML IV PRN (19:53)
[2021-09-30] MEDS ORDERED: ONDANSETRON 4 MG OD TAB PO PRN (19:53)
[2021-09-30] MEDS ORDERED: FAMOTIDINE 20 MG TAB PO PRN (19:53)
[2021-09-30] MEDS ORDERED: diphenhydrAMINE Capsule 25 MG CAP PO PRN (19:53)
[2021-09-30] MEDS ORDERED: LORazepam 0.5 MG TAB PO PRN (19:53)
[2021-09-30] MEDS ORDERED: PHARMACY GLYCEMIC MGMT CONSULT PRN (19:53)
[2021-09-30] MEDS ORDERED: DO NOT ADMINISTER PNEUMOCOCCAL VACCINE PRN (19:53)
[2021-09-30] MEDS ORDERED: SOD PHOSPHATE/SOD BIPHOSPHATE ENEMA 132 ML BTL PR PRN (19:53)
[2021-09-30] MEDS ORDERED: MAGNESIUM HYDROXIDE SUSP 30 ML UDC PO PRN (19:53)
[2021-09-30] MEDS ORDERED: ACETAMINOPHEN 1,000 MG/100 ML VIAL IV PRN (19:53)
[2021-09-30] MEDS ORDERED: ALUMINUM/MAGNESIUM SUSP 30 ML UDC PO PRN (19:53)
[2021-09-30] MEDS ORDERED: METOCLOPRAMIDE HCL INJ 5 MG/ML 2 ML VIAL IV PRN (19:53)
[2021-09-30] MEDS ORDERED: DO NOT ADMINISTER FLU VACCINE PRN (19:53)
[2021-09-30] MEDS ORDERED: traMADol HCL 50 MG TABLET PO PRN (19:53)
[2021-09-30] MEDS ORDERED: NALOXONE HCL 0.4 MG/1 ML VIAL/CARP IV PRN (19:53)
[2021-09-30] MEDS ORDERED: bisacodyL 10 MG SUPP PR PRN (19:53)
[2021-09-30] MEDS ORDERED: ACETAMINOPHEN 500 MG TAB PO PRN (19:53)
--- NOTE | 2021-09-30 20:21 | Anesthesiology Progress Note ---
Date of Service September 30, 2021 Anesthesia Post Procedure Vital Signs Vital Signs: Temp Pulse Pulse Pulse Resp BP BP 09/30/21 19:00 91 H 14 125/81 09/30/21 18:50 99 H 13 133/84 09/30/21 18:40 95 H 12 145/82 H 09/30/21 18:30 94 H 16 142/89 H 09/30/21 18:20 36.7 C 94 H 16 149/87 H 09/30/21 18:10 89 14 113/85 09/30/21 18:00 81 15 130/77 09/30/21 17:50 85 12 128/76 09/30/21 17:41 36.6 C 98 H 12 116/94 09/30/21 13:39 36.8 C 74 18 134/81 09/30/21 07:19 36.7 C 62 18 161/85 H 09/30/21 03:01 36.6 C 68 16 143/80 H 09/29/21 21:00 36.7 C 62 20 178/89 H 09/29/21 21:56 63 14 139/78 Pulse Ox O2 Del Method O2 Flow Rate 09/30/21 19:00 94 Nasal Cannula 2 09/30/21 18:50 93 Nasal Cannula 2 09/30/21 18:40 94 Nasal Cannula 2 09/30/21 18:30 95 Nasal Cannula 2 09/30/21 18:20 95 Nasal Cannula 2 09/30/21 18:10 95 Nasal Cannula 2 09/30/21 18:00 99 Oxymask 9 09/30/21 17:50 99 Oxymask 9 09/30/21 17:41 95 Oxymask 9 09/30/21 13:39 95 Room Air 09/30/21 07:19 98 Room Air 09/30/21 03:01 94 Room Air 09/29/21 21:00 97 Room Air 09/29/21 21:56 95 Room Air Pain Intensity Lower Back: Pain Intensity: 10 Transfer of Care Handoff Completed per policy Notes Mental Status: alert / awake / arousable and participated in evaluation Patient Amnestic to Procedure: Yes Nausea / Vomiting: adequately controlled Pain: adequately controlled Airway Patency, RR, SpO2: stable & adequate BP & HR: stable & adequate Hydration State: stable & adequate Anesthetic Complications: no major complications apparent and Pt Satisfied with anesthetic care
[2021-09-30] MEDS ORDERED: DEXTROSE 50% 50 ML SYRINGE IV PRN (20:45)
[2021-09-30] MEDS ORDERED: GLUCOSE 40% GEL 15 GM TUBE PO PRN (20:45)
[2021-09-30] MEDS ORDERED: GLUCOSE 10 TAB/TUBE PO PRN (20:45)
[2021-09-30] MEDS ORDERED: CARBOHYDRATES FOR HYPOGLYCEMIA PO PRN (20:45)
[2021-09-30] MEDS ORDERED: GLUCAGON FOR INJ 1 MG VIAL IM PRN (20:45)
--- NOTE | 2021-09-30 21:21 | Electrocardiogram Report ---
Test Reason : Blood Pressure : / mmHG Vent. Rate : 062 BPM Atrial Rate : 062 BPM P-R Int : 134 ms QRS Dur : 100 ms QT Int : 414 ms P-R-T Axes : 049 021 059 degrees QTc Int : 420 ms Sinus rhythm with occasional Premature ventricular complexes Otherwise normal ECG When compared with ECG of 02-OCT-2016 17:33, Premature ventricular complexes are now Present Confirmed by Azael Amaya ([id number]) on 09/30/2021 9:21:04 PM Referred By: REFERRED SELF Confirmed By:Azael Amaya
[2021-09-30] MEDS: INSULIN ASPART PER UNIT SC SCH (21:36)
[2021-09-30] MEDS: LIDOCAINE 5% 1 PATCH TD SCH (21:44)
[2021-09-30] MEDS: ceFAZolin 2000MG 2,000 MG/15 ML SYR IV SCH (23:49)
[2021-10-01] MEDS: SODIUM CHLORIDE 0.9% 1000ML 1,000 ML IV SCH (03:36)
[2021-10-01] MEDS: oxyCODONE HCL IR 5 MG TAB (IMMEDIATE RELEASE) PO PRN ×3 (05:31→14:10)
[2021-10-01] MEDS: POLYETHYLENE (MIRALAX) 17 GM PACK PO SCH ×3 (05:33→17:56)
[2021-10-01] MEDS: CYCLOBENZAPRINE HCL 10 MG TAB PO PRN ×2 (06:02→14:22)
[2021-10-01 06:15] LABS: Basophils # (auto) 0.03 K/uL (0-0.2); Basophils % (auto) 0.2 %; Hematocrit (blood only) 46.2 % (40.1-51.0); Hemoglobin 15.9 g/dl (14.0-18.0); Immature Granulocytes # (auto) 0.17 K/uL (0.00-0.02); Lymphocytes # (auto) 1.42 K/uL (1.2-3.4); Lymphocytes % (auto) 8.3 %; Mean Corpuscular Hemoglobin 33.6 pg (25.0-34.0); Mean Corpuscular Hgb Conc 34.4 g/dL (32.0-36.0); Mean Corpuscular Volume 97.7 fL (80.0-100.0); Mean Platelet Volume 10.7 fL (9.4-12.4); Monocytes # (auto) 1.84 K/uL (0.24-0.82); Monocytes % (auto) 10.7 %; Neutrophils # (auto) 13.66 K/uL (1.4-6.5); Neutrophils % (auto) 79.8 %; Platelet Count 261 K/uL (130-400); RDW Coefficient of Variation 12.2 % (11.5-14.5); Red Blood Count 4.73 M/uL (4.63-6.08); White Blood Count 17.12 K/ul (4.8-10.8)
[2021-10-01 06:34] LABS: BUN Creatinine Ratio 28.8 (10-20); Calcium 8.7 mg/dl (8.5-10.1); Creatinine Clr Calc Pharmacy 76.7 ml/min; Est GFR (African American) 82.6 ml/min; Est GFR (Non-African American) 71.3 ml/min; Potassium 4.5 mmol/L (3.5-5.1)
[2021-10-01] MEDS: ceFAZolin 2000MG 2,000 MG/15 ML SYR IV SCH (07:41)
--- NOTE | 2021-10-01 08:27 | Hospitalist Progress Note ---
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 #2 posterior spinal fusion L2-L3 L3- L4. #3 placement posterior instrumentation L2-L4. #4 interbody fusion L3-L4 L4-5. #5 placement of Spira 14 x 26 mm cage at L2-L3 and 13 x 26 mm cage at L3- L4. #6 placement locally harvested morselized autograft in the posterior gutters. #7 placement of I factor model V toss in interbody space and posterior lateral gutters. with Dr Figueroa. Per OP report, severe central lateral recess stenosis as well as evidence of massive acute disc herniation at L2-L3 on the left that had migrated through the foramen and with this into the extraforaminal space EBL 100cc Hgb 16.9--> 15.9 and stable WBC elevation likely 2nd to steroids, given 8mg IV x 1 on 09/30, continues on 6mg IV daily. Afebrile Pain control, antiemetics prn Bowel regimen Senna/docusate, miralax. +BM 09/29 and will continue aggressive bowel regimen Also reported chronic balance problems, obtained B12 which was 234 and placed on 1000mcg B12 daily and would continue at [facility] PT/OT consulted, CM to follow (2) Left lumbar radiculitis: (3) Hypertension: Plan: Elevations 2nd to pain, no CP/SOB/headache Losartan continued for 09/30, holding for today with BP 124/57 but Cr stable. 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 Albuterol HFA prn Monitor (6) Elevated hemoglobin A1c: Plan: A1c prior 5.10 August 2021 ISS ordered given on steroids, BSGs acceptable and guille monitor (7) B12 deficiency: Plan: B12 low at 234, checked given reported balance problems at baseline started B12 1000 mcg po once daily and cont at d/c f/u as outpt (8) DVT prophylaxis: Plan: SCDs/pio hose chemical contraindicated in back surgery Plan PT/OT consults pending, likely remaining inpatient until Sunday per patient discussion with Dr Figueroa Admission and Anticipated Discharge Date Admission Date: September 29, 2021 Supervising Physician Co-Signing Physician Notes PA Supervision Note: I did not personally see or examine the patient today, but I verified all odom points of EMILIE Bourne's assessment and plan with the following exceptions/additions: none Subjective Patient evaluated this morning. Leg pain much improved and nerve pain resolved. Having some incisional pain. So thankful for everyones work to get surgery completed yesterday. Stood with therapy, no lightheaded or dizziness. Will hold losartan for this morning but plan for resume in AM given borderline low BP. He did note was a little hard coming out of anesthesia, but noted increased medications and ativan prior to. He did get a dose of muscle relaxer for back spasm. Passing gas slowly, no abdominal pain and getting miralax and stool softener this morning. Has walker and raised toilet seat at home, will work with therapy today. 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 Questions/concerns addressed at this time. Review of Systems Review of Systems: All systems reviewed & are unremarkable except as noted in HPI & below Physical Exam Physical Exam: General: WD/WN male sitting up in bed, NAD HEENT; head normocephalic, atraumatic, mmm , trachea midline without deviation Resp: CTAB, no w/c/r, on room air 96% CV: RRR, no m/r/g, no edema, pulses palpable GI: +BS, +distended, firm, non-tender, no guarding or rigidity : messer draining clear yellow urine MSK/Neuro: dressing to lumbar spine c/d/i, MOE with 30cc bloody drainage, improvement in strength to b/l LE with dorsiflexion/plantar flexion, improved strength against resistance to quads Skin: warm, dry Psych: alert, oriented, pleasant and cooperative Results & Data Results & Data ([facility]) Vital Signs (Past 12 Hours) Vital Signs Temp Pulse Resp BP BP Pulse Ox O2 Del Method 10/01/21 07:38 36.8 C 84 14 124/57 L 96 Room Air 10/01/21 03:31 36.4 C L 75 16 128/82 97 Room Air 09/30/21 22:35 36.6 C 86 20 124/82 93 Nasal Cannula 09/30/21 21:10 36.5 C 99 H 20 134/79 95 Nasal Cannula O2 Flow Rate 10/01/21 07:38 10/01/21 03:31 09/30/21 22:35 2 09/30/21 21:10 2 Laboratory Results 10/01/21 10/01/21 10/01/21 Range/Units 09:14 06:03 06:03 WBC 17.12 H (4.8-10.8) K/ul RBC 4.73 (4.63-6.08) M/uL Hgb 15.9 (14.0-18.0) g/dl Hct 46.2 (40.1-51.0) % MCV 97.7 (80.0-100.0) fL MCH 33.6 (25.0-34.0) pg MCHC 34.4 (32.0-36.0) g/dL RDW Std Deviation 44.0 (36.4-46.3) fL RDW Coeff of Veronica 12.2 (11.5-14.5) % Plt Count 261 (130-400) K/uL MPV 10.7 (9.4-12.4) fL Immature Gran % (Auto) 1.0 % Neut % (Auto) 79.8 % Lymph % (Auto) 8.3 % Ogle % (Auto) 10.7 % Eos % (Auto) 0.0 % Baso % (Auto) 0.2 % Neut # (Auto) 13.66 H (1.4-6.5) K/uL Lymph # (Auto) 1.42 (1.2-3.4) K/uL Ogle # (Auto) 1.84 H (0.24-0.82) K/uL Eos # (Auto) 0.00 (0-0.50) K/uL Baso # (Auto) 0.03 (0-0.2) K/uL Immature Gran # (Auto) 0.17 H (0.00-0.02) K/uL Sodium 134 L (136-145) mmol/L Potassium 4.5 (3.5-5.1) mmol/L Chloride 101 (98-107) mmol/L Carbon Dioxide 24 (21-32) mmol/L Anion Gap 9 (3-11) BUN 32 H (6-23) mg/dl Creatinine 1.11 (0.6-1.4) mg/dl Est Cr Clr Drug Dosing 76.7 ml/min Est GFR ( Amer) 82.6 ml/min Est GFR (Non-Af Amer) 71.3 ml/min BUN/Creatinine Ratio 28.8 H (10-20) Glucose 162 H (70-99(Fasting)) mg/dl POC Glucose 126 H (70-99) mg/dl Calcium 8.7 (8.5-10.1) mg/dl Magnesium (1.7-2.4) mg/dl Vitamin B12 (180-914) pg/ml Blood Type Antibody Screen 09/30/21 09/30/21 09/30/21 Range/Units 21:14 13:59 10:02 WBC (4.8-10.8) K/ul RBC (4.63-6.08) M/uL Hgb (14.0-18.0) g/dl Hct (40.1-51.0) % MCV (80.0-100.0) fL MCH (25.0-34.0) pg MCHC (32.0-36.0) g/dL RDW Std Deviation (36.4-46.3) fL RDW Coeff of Veronica (11.5-14.5) % Plt Count (130-400) K/uL MPV (9.4-12.4) fL Immature Gran % (Auto) % Neut % (Auto) % Lymph % (Auto) % Ogle % (Auto) % Eos % (Auto) % Baso % (Auto) % Neut # (Auto) (1.4-6.5) K/uL Lymph # (Auto) (1.2-3.4) K/uL Ogle # (Auto) (0.24-0.82) K/uL Eos # (Auto) (0-0.50) K/uL Baso # (Auto) (0-0.2) K/uL Immature Gran # (Auto) (0.00-0.02) K/uL Sodium (136-145) mmol/L Potassium (3.5-5.1) mmol/L Chloride (98-107) mmol/L Carbon Dioxide (21-32) mmol/L Anion Gap (3-11) BUN (6-23) mg/dl Creatinine (0.6-1.4) mg/dl Est Cr Clr Drug Dosing ml/min Est GFR ( Amer) ml/min Est GFR (Non-Af Amer) ml/min BUN/Creatinine Ratio (10-20) Glucose (70-99(Fasting)) mg/dl POC Glucose 140 H (70-99) mg/dl Calcium (8.5-10.1) mg/dl Magnesium (1.7-2.4) mg/dl Vitamin B12 234 (180-914) pg/ml Blood Type A Positive Antibody Screen NEGATIVE 09/30/21 09/30/21 Range/Units 10:02 10:02 WBC 10.00 (4.8-10.8) K/ul RBC 4.99 (4.63-6.08) M/uL Hgb 16.9 (14.0-18.0) g/dl Hct 46.8 (40.1-51.0) % MCV 93.8 (80.0-100.0) fL MCH 33.9 (25.0-34.0) pg MCHC 36.1 H (32.0-36.0) g/dL RDW Std Deviation 43.2 (36.4-46.3) fL RDW Coeff of Veronica 12.6 (11.5-14.5) % Plt Count 212 (130-400) K/uL MPV 11.1 (9.4-12.4) fL Immature Gran % (Auto) % Neut % (Auto) % Lymph % (Auto) % Ogle % (Auto) % Eos % (Auto) % Baso % (Auto) % Neut # (Auto) (1.4-6.5) K/uL Lymph # (Auto) (1.2-3.4) K/uL Ogle # (Auto) (0.24-0.82) K/uL Eos # (Auto) (0-0.50) K/uL Baso # (Auto) (0-0.2) K/uL Immature Gran # (Auto) (0.00-0.02) K/uL Sodium 137 (136-145) mmol/L Potassium 3.9 (3.5-5.1) mmol/L Chloride 107 (98-107) mmol/L Carbon Dioxide 20 L (21-32) mmol/L Anion Gap 10 (3-11) BUN 37 H (6-23) mg/dl Creatinine 1.04 (0.6-1.4) mg/dl Est Cr Clr Drug Dosing 81.9 ml/min Est GFR ( Amer) 89.4 ml/min Est GFR (Non-Af Amer) 77.1 ml/min BUN/Creatinine Ratio 35.6 H (10-20) Glucose 101 H (70-99(Fasting)) mg/dl POC Glucose (70-99) mg/dl Calcium 9.1 (8.5-10.1) mg/dl Magnesium 2.2 (1.7-2.4) mg/dl Vitamin B12 (180-914) pg/ml Blood Type Antibody Screen Diagnostic Findings Lumbar Spine X-Ray 09/30/21 13:00 FL lumbar spine 2-3V CLINICAL HISTORY: L2-4 DFI COMPARISON STUDY: Lumbar spine MRI September 28, 2021. FLUOROSCOPY TIME: 24 seconds. FLUOROSCOPIC IMAGES: 2 FINDINGS: Fluoroscopy was provided during L2-L3 and L3-L4 discectomies with interbody spacer placement. Posterior decompression and bilateral pedicle screw fusion from L2 through L4 is noted. Hardware is intact. No unexpected radiopaque foreign bodies. IMPRESSION: Fluoroscopy provided during L2-L4 discectomy, posterior decompression and bilateral pedicle screw fusion. ACT 112: Negative or not required by law. Electronically signed by: Carrington More M.D. 09/30/2021 5:18 PM PG Care Time/CCT Total # of Minutes Spent Total Time Spent with Patient: Total time spent is greater than 50% in coordination of care (as documented) at patient's floor/unit and/or counseling patient: Coding Level of Care Code 28174 Subseq Hosp Care Lvl 2 Diagnoses Lumbar disc herniation with radiculopathy M51.16 Left lumbar radiculitis M54.16 Hypertension I10 Chronic idiopathic urticaria L50.1 Asthma J45.909 Elevated hemoglobin A1c R73.09 B12 deficiency E53.8 DVT prophylaxis Z29.9
--- NOTE | 2021-10-01 08:48 | Orthopedic Progress Note ---
Date of Service October 01, 2021 Assessment & Plan (1) Lumbar disc herniation with radiculopathy: Plan: At this point we will have the patient up and ambulate with physical therapy see how he does throughout the week and hopefully discharge on Sunday. Admission and Anticipated Discharge Date Admission Date: September 29, 2021 Subjective Back pain controlled leg symptoms markedly improved Physical Exam Physical Exam: Patient is comfortable in bed. Skin strength testing. Results & Data ([facility]) Vital Signs (Past 12 Hours) Vital Signs Temp Pulse Resp BP BP Pulse Ox O2 Del Method 10/01/21 07:38 36.8 C 84 14 124/57 L 96 Room Air 10/01/21 03:31 36.4 C L 75 16 128/82 97 Room Air 09/30/21 22:35 36.6 C 86 20 124/82 93 Nasal Cannula 09/30/21 21:10 36.5 C 99 H 20 134/79 95 Nasal Cannula O2 Flow Rate 10/01/21 07:38 10/01/21 03:31 09/30/21 22:35 2 09/30/21 21:10 2
[2021-10-01] MEDS ORDERED: LANTUS PER UNIT CHARGE SQ ONE (09:00)
[2021-10-01] MEDS: GABAPENTIN 400 MG CAP PO SCH ×3 (09:33→21:02)
[2021-10-01] MEDS: CYANOCOBALAMIN (B-12) 500 MCG TABLET PO SCH (09:35)
[2021-10-01] MEDS: ESCITALOPRAM OXALATE 20 MG TAB PO SCH (09:35)
[2021-10-01] MEDS: FEXOFENADINE HCL 180 MG TAB PO SCH (09:35)
[2021-10-01] MEDS: ROSUVASTATIN CALCIUM 5 MG TAB PO SCH (09:35)
[2021-10-01] MEDS: FLUTICASONE/VILANTEROL 200/25MCG 14 PUFFS/INHALER INH SCH (09:36)
[2021-10-01] MEDS: dexAMETHasone 6 MG in SYRINGE 0 ML IV SCH (09:54)
[2021-10-01] MEDS: INSULIN ASPART PER UNIT SC SCH ×4 (09:55→20:57)
[2021-10-01] MEDS: LORazepam 0.5 MG in SYRINGE 0.25 ML IV PRN ×2 (10:10→17:55)
[2021-10-01] MEDS: FAMOTIDINE 20 MG TAB PO SCH (10:10)
--- NOTE | 2021-10-01 13:26 | Pharmacy Report ---
Pharmacy Glycemic Short Note 2 - Date of Service October 01, 2021 - Glycemic Short BSG Results (Last 24 hours): 09/30/21 10/01/21 10/01/21 21:14 06:03 09:14 Glucose 162 H POC Glucose 140 H 126 H 10/01/21 12:28 Glucose POC Glucose 137 H OUTPATIENT ANTIDIABETIC REGIMEN: * n/a HbA1c: 5.8% (08/27/21) - pre-diabetes ASSESSMENT: * MW is a 61 year old male POD #1 s/p L2-L3 lumbar decompression/fusion * Received IV dexamethasone yesterday in OR and is ordered 6 mg IV daily x 3 days postoperatively * Given pre-diabetes only and reasonable BSGs so far, will defer basal insulin and use SC bolus only for now * If BSGs trend up today, will consider initiation of basal tomorrow morning with dexamethasone PLAN FOR INPATIENT GLYCEMIC CONTROL: * Basal insulin * hold * Bolus insulin * NovoLog per scale ACHS or Q6hrs while NPO * Goal Range: Low 110 mg/dL - High 140 mg/dL * Correction Factor: 35 mg/dL/unit * Nutritional / Prandial insulin per carb ratio of 1 unit per 12 grams CHO consumed
[2021-10-01] MEDS ORDERED: ceFAZolin 2000MG 2,000 MG/15 ML SYR IV ONE (14:16)
[2021-10-01] MEDS: LIDOCAINE 5% 1 PATCH TD SCH (21:01)
[2021-10-01] MEDS: DOCUSATE SODIUM/SENNA 50/8.6MG TAB PO SCH (21:02)
[2021-10-02] MEDS: POLYETHYLENE (MIRALAX) 17 GM PACK PO SCH ×5 (00:30→23:07)
[2021-10-02] MEDS: CYCLOBENZAPRINE HCL 10 MG TAB PO PRN ×3 (02:26→20:40)
[2021-10-02] MEDS: oxyCODONE HCL IR 5 MG TAB (IMMEDIATE RELEASE) PO PRN ×2 (06:05→20:41)
[2021-10-02 06:08] LABS: Hematocrit (blood only) 42.7 % (40.1-51.0); Hemoglobin 14.9 g/dl (14.0-18.0); Mean Corpuscular Hemoglobin 34.1 pg (25.0-34.0); Mean Corpuscular Hgb Conc 34.9 g/dL (32.0-36.0); Mean Corpuscular Volume 97.7 fL (80.0-100.0); Mean Platelet Volume 10.7 fL (9.4-12.4); Platelet Count 183 K/uL (130-400); RDW Coefficient of Variation 12.4 % (11.5-14.5); RDW Standard Deviation 44.6 fL (36.4-46.3); Red Blood Count 4.37 M/uL (4.63-6.08); White Blood Count 13.38 K/ul (4.8-10.8)
[2021-10-02 06:40] LABS: BUN Creatinine Ratio 33.3 (10-20); Calcium 8.8 mg/dl (8.5-10.1); Creatinine Clr Calc Pharmacy 83.5 ml/min; Est GFR (African American) 91.5 ml/min; Potassium 4.6 mmol/L (3.5-5.1)
--- NOTE | 2021-10-02 08:07 | Hospitalist Progress Note ---
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 #2 posterior spinal fusion L2-L3 L3- L4. #3 placement posterior instrumentation L2-L4. #4 interbody fusion L3-L4 L4-5. #5 placement of Spira 14 x 26 mm cage at L2-L3 and 13 x 26 mm cage at L3- L4. #6 placement locally harvested morselized autograft in the posterior gutters. #7 placement of I factor model V toss in interbody space and posterior lateral gutters. with Dr Figueroa. Per OP report, severe central lateral recess stenosis as well as evidence of massive acute disc herniation at L2-L3 on the left that had migrated through the foramen and with this into the extraforaminal space EBL 100cc Hgb 16.9--> 15.9 -->14.9 and stable given MOE output 450cc + 305cc and will need to continue to monitor WBC elevation likely 2nd to steroids, improved, afebrile Asked RN to give incentive spirometer Dexamethasone 6mg IV daily Pain control, antiemetics prn Flexeril mainly being used as spasm pain primary issue 10/02 Bowel regimen Senna/docusate, miralax. +BM 09/29 and will continue aggressive bowel regimen . 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 Albuterol HFA prn --> did report some tightness/wheeze this am and used his inhaler x 1 AM 10/02., No chest pain Monitor (6) Elevated hemoglobin A1c: Plan: A1c prior 5.10 August 2021 ISS ordered given on steroids, BSGs acceptable and will monitor (7) B12 deficiency: Plan: B12 low at 234, checked given reported balance problems at baseline started B12 1000 mcg po once daily and cont at d/c f/u as outpt (8) DVT prophylaxis: Plan: SCDs/pio hose chemical contraindicated in back surgery Plan PT/OT consults pending, suspect able to d/c tomorrow but will monitor progress Dr Figueroa admitted and to resume primary service, hospitalist can touch base in AM Admission and Anticipated Discharge Date Admission Date: September 29, 2021 Supervising Physician Co-Signing Physician Notes PA Supervision Note: I did not personally see or examine the patient today, but I verified all odom points of EMILIE Bourne's assessment and plan with the following exceptions/additions: none Subjective Patient evaluated this morning. Doing well other than spasms, controlled with Flexeril. Will ensure sending at home as well. Passing gas, up in chair currently and voided after messer removed. No BM but denies abdominal pain, he states taking miralax. Attempting to cough/deep breath but having some pain when doing so. Discussed incentive spirometer, does not have one in the room. He states he used his inhaler x 1 this morning for some tightness that has resolved. Having some thigh numbness on the right but states that's been present for 30 years, not worse. Some on the left but improving and will continue to monitor. No fever/chills, chest pain, shortness of breath, nausea or vomiting. Review of Systems Review of Systems: All systems reviewed & are unremarkable except as noted in HPI & below Physical Exam Physical Exam: General: WD/WN male sitting up in chair, NAD HEENT; head normocephalic, atraumatic, mmm , trachea midline without deviation Resp: decreased inspiratory effort due to pain, faint bibasilar crackles, no wheezing or rales, SpO2 96% on RA CV: RRR, no m/r/g, no edema, pulses palpable GI: +BS throughout although distended/firm but non-tender, no guarding or rigidity : messer draining clear yellow urine MSK/Neuro: dressing to lumbar spine c/d/i, MOE with scant bloody drainage, improvement in strength to b/l LE with dorsiflexion/plantar flexion, improved strength against resistance to quads, calves non-tender, nonedematous Skin: warm, dry Psych: alert, oriented, pleasant and cooperative Results & Data Results & Data ([facility]) Vital Signs (Past 12 Hours) Vital Signs Temp Pulse Resp BP BP Pulse Ox O2 Del Method 10/02/21 07:37 36.8 C 72 20 121/75 96 Room Air 10/01/21 21:46 36.6 C 80 16 122/77 96 Room Air Laboratory Results 10/02/21 10/02/21 10/01/21 Range/Units 05:37 05:37 20:45 WBC 13.38 H (4.8-10.8) K/ul RBC 4.37 L (4.63-6.08) M/uL Hgb 14.9 (14.0-18.0) g/dl Hct 42.7 (40.1-51.0) % MCV 97.7 (80.0-100.0) fL MCH 34.1 H (25.0-34.0) pg MCHC 34.9 (32.0-36.0) g/dL RDW Std Deviation 44.6 (36.4-46.3) fL RDW Coeff of Veronica 12.4 (11.5-14.5) % Plt Count 183 (130-400) K/uL MPV 10.7 (9.4-12.4) fL Sodium 136 (136-145) mmol/L Potassium 4.6 (3.5-5.1) mmol/L Chloride 101 (98-107) mmol/L Carbon Dioxide 28 (21-32) mmol/L Anion Gap 7 (3-11) BUN 34 H (6-23) mg/dl Creatinine 1.02 (0.6-1.4) mg/dl Est Cr Clr Drug Dosing 83.5 ml/min Est GFR ( Amer) 91.5 ml/min Est GFR (Non-Af Amer) 79.0 ml/min BUN/Creatinine Ratio 33.3 H (10-20) Glucose 119 H (70-99(Fasting)) mg/dl POC Glucose 119 H (70-99) mg/dl Calcium 8.8 (8.5-10.1) mg/dl 10/01/21 10/01/21 10/01/21 Range/Units 17:21 12:28 09:14 WBC (4.8-10.8) K/ul RBC (4.63-6.08) M/uL Hgb (14.0-18.0) g/dl Hct (40.1-51.0) % MCV (80.0-100.0) fL MCH (25.0-34.0) pg MCHC (32.0-36.0) g/dL RDW Std Deviation (36.4-46.3) fL RDW Coeff of Veronica (11.5-14.5) % Plt Count (130-400) K/uL MPV (9.4-12.4) fL Sodium (136-145) mmol/L Potassium (3.5-5.1) mmol/L Chloride (98-107) mmol/L Carbon Dioxide (21-32) mmol/L Anion Gap (3-11) BUN (6-23) mg/dl Creatinine (0.6-1.4) mg/dl Est Cr Clr Drug Dosing ml/min Est GFR ( Amer) ml/min Est GFR (Non-Af Amer) ml/min BUN/Creatinine Ratio (10-20) Glucose (70-99(Fasting)) mg/dl POC Glucose 159 H 137 H 126 H (70-99) mg/dl Calcium (8.5-10.1) mg/dl PG Care Time/CCT Total # of Minutes Spent Total Time Spent with Patient: Total time spent is greater than 50% in coordination of care (as documented) at patient's floor/unit and/or counseling patient: Coding Level of Care Code 84357 Subseq Hosp Care Lvl 2 Diagnoses Lumbar disc herniation with radiculopathy M51.16 Left lumbar radiculitis M54.16 Hypertension I10 Chronic idiopathic urticaria L50.1 Asthma J45.909 Elevated hemoglobin A1c R73.09 B12 deficiency E53.8 DVT prophylaxis Z29.9
[2021-10-02] MEDS: GABAPENTIN 400 MG CAP PO SCH ×3 (08:52→20:42)
[2021-10-02] MEDS: LOSARTAN POTASSIUM 50 MG TAB PO SCH (08:52)
[2021-10-02] MEDS: dexAMETHasone 6 MG in SYRINGE 0 ML IV SCH (08:52)
[2021-10-02] MEDS: ROSUVASTATIN CALCIUM 5 MG TAB PO SCH (08:52)
[2021-10-02] MEDS: CYANOCOBALAMIN (B-12) 500 MCG TABLET PO SCH (08:53)
[2021-10-02] MEDS: ESCITALOPRAM OXALATE 20 MG TAB PO SCH (08:53)
[2021-10-02] MEDS: FAMOTIDINE 20 MG TAB PO SCH (08:53)
[2021-10-02] MEDS: FEXOFENADINE HCL 180 MG TAB PO SCH (08:53)
[2021-10-02] MEDS: FLUTICASONE/VILANTEROL 200/25MCG 14 PUFFS/INHALER INH SCH (08:54)
--- NOTE | 2021-10-02 08:56 | Orthopedic Progress Note ---
Date of Service October 02, 2021 Assessment & Plan (1) Lumbar disc herniation with radiculopathy: Plan: Brendon is doing well postoperative day 2 status post lumbar decompression fusion L2-4. We will continue with physical therapy today. Continue with pain control. He is on Flexeril for muscle relaxant. Maintain MOE drain. Anticipate discharge home tomorrow. Continue with aggressive bowel regimen. DVT prophylaxis is in the form of teds and SCDs. Admission and Anticipated Discharge Date Admission Date: September 29, 2021 Subjective Brendon is postoperative day 2 posterior lumbar decompression and instrumented fusion L2-4. Only complaint is of muscle spasms. Has some left anterior thigh numbness, but pain is improving. He is passing flatus but no bowel movement. Yesterday in physical therapy he was ambling roughly 20 feet. MOE drain output is 100 cc last shift. Review of Systems Review of Systems: All systems reviewed & are unremarkable except as noted in HPI & below Physical Exam Physical Exam: He sitting in a chair eating breakfast No acute distress Alert and oriented x3 Lumbar dressing is clean dry and intact with functioning MOE drain Calf soft nontender bilaterally Strength intact bilateral lower extremities Results & Data ([facility]) Vital Signs (Past 12 Hours) Vital Signs Temp Pulse Resp BP BP Pulse Ox O2 Del Method 10/02/21 07:37 36.8 C 72 20 121/75 96 Room Air 10/01/21 21:46 36.6 C 80 16 122/77 96 Room Air
[2021-10-02] MEDS: INSULIN ASPART PER UNIT SC SCH ×4 (09:01→20:36)
[2021-10-02] MEDS ORDERED: MAGNESIUM SULFATE / D5W 1 GM/100 ML BAG IV ONE (10:41)
[2021-10-02] MEDS: DOCUSATE SODIUM/SENNA 50/8.6MG TAB PO SCH (20:42)
[2021-10-02] MEDS: LIDOCAINE 5% 1 PATCH TD SCH (21:59)
[2021-10-03] MEDS: POLYETHYLENE (MIRALAX) 17 GM PACK PO SCH ×2 (05:48→13:13)
[2021-10-03] MEDS: LOSARTAN POTASSIUM 50 MG TAB PO SCH (07:58)
[2021-10-03] MEDS: CYANOCOBALAMIN (B-12) 500 MCG TABLET PO SCH (07:58)
[2021-10-03] MEDS: ESCITALOPRAM OXALATE 20 MG TAB PO SCH (07:58)
[2021-10-03] MEDS: GABAPENTIN 400 MG CAP PO SCH (07:58)
[2021-10-03] MEDS: dexAMETHasone 6 MG in SYRINGE 0 ML IV SCH (07:58)
[2021-10-03] MEDS: FAMOTIDINE 20 MG TAB PO SCH (07:58)
[2021-10-03] MEDS: FLUTICASONE/VILANTEROL 200/25MCG 14 PUFFS/INHALER INH SCH (07:59)
[2021-10-03] MEDS: FEXOFENADINE HCL 180 MG TAB PO SCH (07:59)
[2021-10-03] MEDS: ROSUVASTATIN CALCIUM 5 MG TAB PO SCH (07:59)
[2021-10-03] MEDS: INSULIN ASPART PER UNIT SC SCH ×2 (09:39→13:16)
--- NOTE | 2021-10-03 09:41 | Discharge Summary ---
Date of Service October 03, 2021 Admission HPI Per Admitting Provider 61yo M w/ hx of chronic back problems, HTN, HLD who presents with acute back pain. Reports he fell off a tractor trailer step on 09/26. Per notes, he just missed the last step and fell to the ground on his left side. He came to the ER on 09/26 and was given oxycodone and discharged, but the pain was too bad and he returned. He reports that this morning, he tried to take a shower, and it felt like "the skin was burning off [his] leg," and he decided to come to the ER. In the ER, a lumbar MRI was done which showed significant interval worsening of degenerative disc and degenerative facet joint disease from L2 through S1. Dr. Figueroa was called and asked that the patient be admitted to medicine for evaluation in the morning. Principal Diagnosis Acute lumbar disc condition with radiculopathy and neuro deficit Discharge Data Allergies Allergy/AdvReac Type Severity Reaction Status Date / Time hornet venom Allergy Severe ANAPHYLAXIS Verified 09/28/21 22:22 ragweed pollen Allergy Unknown FLARES UP Verified 09/28/21 22:22 ASTHMA Bee sting Allergy Unknown Anaphylaxis Uncoded 09/28/21 22:22 DUST Allergy Unknown FLARES UP Uncoded 09/28/21 22:22 ASTHMA Consultations 09/28/21 17:26 ED Decision to Admit Stat 09/28/21 20:34 Consult Orthopedic Surgery Routine Procedures Performed Operation Date: 09/30/21 09:20 Actual Procedures p L2-L3, L3-L4 Lumbar Decompression and Fusion, spinal cord monitoring, insertion spinal interbody. - Alexandru Figueroa, DO Ordered Studies 09/28/21 15:17 MR lumbar spine wo con Stat 09/30/21 13:00 FL lumbar spine 2-3V Routine Hospital Course (1) Lumbar disc herniation with radiculopathy: Patient underwent urgent lumbar decompression fusion. He tolerated this well was taken to orthopedic for postoperative. Postop day 1 is up and ambulating progressed to postop day 2 on postop day #3 he is ambulating halls MOE drain decreasing appropriate. Excellent strength testing. Separately discharged home. Discharge orders instructions from the chart for further review. Total Time Total Time Spent Total Time Spent (In Minutes): 20 minutes Discharge Plan Discharge Items Patient Disposition: Home - Self-Care Reason For Visit: BACK PAIN Discharge Diagnosis: Acute disc condition with radiculopathy motor deficit Condition on Discharge: Fair Activity: As commented below Non-emergency contact: Primary Care Provider Call non-emergency contact if: you have any medication questions Follow-up/Referrals: Claudette Baca PA-C [Primary Care Provider] - Diet: Regular Addtl Attending Provider Instructions: ACTIVITY RECOMMENDATIONS: SELF CARE INSTRUCTIONS AFTER THORACIC/LUMBAR FUSIONS 1. You may walk to your tolerance. It is good exercise for your legs and back. Expect some back and intermittent leg aches and pains. 2. You may perform "counter-top" level activities (make a sandwich, aleah with a project, etc.). 3. No bending or lifting of more than 10 pounds or back twisting of any nature (roll like a log when turning in bed). 4. You may ride in a car for 20-30 minutes at a time. No driving until after your first visit with your doctor. 5. Frequent changes of position and restricting sitting to 30 minutes at a time will help limit the amount of back spasms and stiffness you may experience. 6. You may discontinue the use of ambulatory aids (cane, crutches, etc.) once your strength and confidence allow. 7. You may card grinder helper the shower and let water strike your incision when you arrive home at least once daily. Do not take a tub bath, sit in a hot tub or go into a swimming pool until after your first recheck in the office. SPECIAL CARE INSTRUCTIONS: VERY IMPORTANT TO READ AND REVIEW A. Your surgical incision has been closed with a cosmetic suture under the skin that will dissolve in about 6 weeks. In 14 days, you can use a pair of clean scissors and cut the suture that is left outside of the skin at the ends of your incision. 1. The small skin tapes can be removed 7 days after surgery if they have not fallen off by that point. 2. You may keep the wound open to air as much as possible to promote healing after post-op day number 5 unless told otherwise by your doctor. 3. If you think the wound looks like it is becoming infected (redness or worsening drainage) and/or you are experiencing fever, chill or worsening back pain and muscle spasms, contact the office so that we may evaluate you as soon as possible. B. Complications are uncommon, but please contact us if you have any signs or symptoms of: 1. wound infection (fever higher than 102.5 degrees F, redness, separation of wound, drainage, or increasing pain from the incision) 2. blood clots in legs (pain, swelling, redness and warmth in legs) 3. urinary tract infection (fever higher than 102.5 degrees F, burning upon urination or increased frequency of urination) 4. nerve problems (inability to walk on your toes or heels, numbness, loss of bowel or bladder control) 5. any other symptoms that concern you C. Please call the office at if you have any concerns or questions about your operation or recovery. D. No smoking! Smoking drastically decreases the chance of a solid fusion. E. Do not take any anti-inflammatory medications (Indocin, Advil, Motrin, Asp irin, Naprosyn, etc.) as these may inhibit the chance of a solid fusion. Tylenol is okay to take for pain. MANAGING PAIN AFTER SPINAL SURGERY 1. Narcotic medication is intended for short-term use and will be provided for surgical pain. Surgical pain usually lasts for a period of 4-6 weeks. Narcotic medication includes Percocet, Vicodin, Darvocet, Tylenol #3 or Lortab. 2. Longer-term pain is more appropriately treated with non-narcotic medication such as Tylenol ES. 3. Muscle spasm is not appropriately treated with narcotics. Muscle relaxers such as Soma, Flexeril or Skelaxin can be used along with Tylenol ES. 4. Remember that we all live with some "aches and pains". This is not unusual or uncommon after an injury or as we get older. a. Back pain is expected and may include muscle spasms for 4 to 6 weeks after surgery. The pain should gradually improve. If the pain worsens for no apparent reason, please contact the office. b. Intermittent leg pain may also be experienced and should not be concerned about unless it worsens for no apparent reason. If so, please contact the office. 5. We will provide appropriate medication within the normal guidelines of their prescribed use. We will also be very cautious and aware of potential abuse and extended duration of patients' medication needs. a. Pain medications are for your comfort and to assist with sleep and rest so that the tissue can heal. They are not provided in order to return to normal activity and should not be used through the day. To do so or worsening pain at night can result from ongoing tissue damage and development of tolerance to the prescribed medicine. 6. Please allow 2-3 days to process refills. Prescriptions will not be mailed but must be picked up at the office. FOLLOW UP VISIT: Keep your scheduled follow-up appointment. Any questions, please call the office at . Pending Studies at Discharge: No Stand-Alone Forms: [facility], Work/School Release, Smoking Cessation Medications and DC Order Prescriptions: New tramadol 50 mg tablet 50 mg PO Q6H PRN (Reason: pain, moderate) Qty: 30 0RF oxycodone 5 mg tablet 5 mg PO Q6H PRN (Reason: pain, severe) Qty: 30 0RF cyanocobalamin (vitamin B-12) 500 mcg Tablet 1,000 mcg PO QAM Qty: 60 0RF Rx Instructions: OTC Continued epinephrine [Auvi-Q] 0.3 mg/0.3 mL auto-injector 0.3 mg IM ONCE PRN (Reason: anaphylaxis) Qty: 2 3RF rosuvastatin 5 mg tablet 5 mg PO DAILY Qty: 90 3RF losartan 50 mg tablet 50 mg PO QAM Qty: 90 3RF fluticasone propion-salmeterol [Advair Diskus] 500-50 mcg/dose blister with device 1 inh INH BID Qty: 3 3RF Rx Instructions: PLEASE DISPENSE 90 DAY SUPPLY WITH 3 REFILLS cyclobenzaprine 10 mg tablet 10 mg PO Q8H PRN (Reason: muscle spasm) Qty: 30 1RF albuterol sulfate [Proventil HFA] 90 mcg/actuation HFA aerosol inhaler 2 puff INH Q6H PRN (Reason: shortness of breath) 90 Days Qty: 54 3RF escitalopram oxalate 20 mg tablet 20 mg PO DAILY Qty: 90 3RF celecoxib 100 mg capsule 100 mg PO BID fexofenadine 180 mg tablet 180 mg PO TID gabapentin 400 mg capsule 400 mg PO TID sildenafil (pulm.hypertension) 20 mg tablet 20 mg PO PRN PRN (Reason: Sexual Activity) Label Comments: take 2-5 tablets as needed 1 hour prior to need albuterol sulfate 2.5 mg /3 mL (0.083 %) solution for nebulization 2.5 mg INH QID PRN (Reason: shortness of breath or wheezing) Qty: 180 0RF oxycodone 5 mg tablet 5 mg PO Q4H PRN (Reason: pain) Qty: 15 0RF Discontinued ibuprofen 200 mg Tablet 600 mg PO Q6H PRN (Reason: Pain) methylprednisolone [Medrol (Vincent)] 4 mg tablets,dose pack 4 mg PO DAILY Qty: 21 0RF Rx Instructions: Per package instructions Discharge Orders: Discharge Order (Routine); Ordered 10/03/21 Ordered By: Alexandru Figueroa Admission Data Admit Date/Time: 09/29/21 15:59 Attending Provider: Alexandru Figueroa Admit Provider: Jong Walker Primary Care Provider: Claudette Baca Other Providers: Jong Walker ; Alexandru Figueroa
[2021-10-03] MEDS: CYCLOBENZAPRINE HCL 10 MG TAB PO PRN (13:42)
[2021-10-03] MEDS: oxyCODONE HCL IR 5 MG TAB (IMMEDIATE RELEASE) PO PRN (14:55)
== END 2021-10-03 15:26 | disposition home or self-care (01) | DRG 455 ==
LOC: EDINP 14:48 → ED 14:48 → SUATTDRO 18:12 → 3N 09-29 21:56